=== PATIENT | female | born 1990 | race Caucasian/White ===

== ENCOUNTER 2020-12-31 13:32 | Emergency (ER) | payer OTHER, SELFPAY ==
[2020-12-31 13:35] VITALS: BP 131/69; PULSE 96; RESP 16; TEMP 36.4; O2SAT 99
--- NOTE | 2020-12-31 14:01 | ED.GENADULT ---
HPI - General Adult General Chief complaint: Upper Respiratory Infection Stated complaint: EARS/CONGESTION/PRESSURE IN FACE/COUGH Source: patient Mode of arrival: ambulatory Limitations: no limitations History of Present Illness HPI narrative: Patient is a 30-year-old, female presents to the [facility] via POV for evaluation of upper respiratory symptoms that began approximately 2 weeks ago. She is 34 weeks and is accompanied by her spouse. Additionally, she reports nasal congestion, head congestion, chest congestion, sinus congestion, right ear pain, wet cough, green nasal drainage, and fatigue. No relief with homeopathic medications or nasal lavages. Nuha and Tylenol provide minimal relief. Laying down worsens symptoms. Denies known exposure to sick contacts. Patient reports she is vaccinated against Covid. She also reports testing negative for strep throat and Covid shortly after onset of symptoms. Related Data Home Medications Medication Instructions Recorded Confirmed vit no.[id number] 1 tablet PO DAILY 02/21/19 02/21/19 [ Vitamin] escitalopram oxalate mg 12/31/20 Allergies Allergy/AdvReac Type Severity Reaction Status Date / Time chlorhexidine Allergy Intermediate Rash Verified 12/31/20 13:37 PSEUDOEPHEDRINE HCL Allergy Mild Palpitation Uncoded 02/21/19 14:51 s Review of Systems Review of Systems: Denies history of COPD, bronchitis, asthma, and pneumonia. Denies current/past tobacco use. Pertinent negatives: fever, sweats, chills, change in appetite, skin color changes, headache, dizziness, lymphadenopathy, sinus problems, ear drainage, muffled hearing, hearing loss, tinnitus, vertigo, chest pain, heart murmurs, heart palpitations, shortness of breath, wheezing, cyanosis, hemoptysis, hoarseness, orthopnea, pleuritic pain, nausea, vomiting, diarrhea, and myalgias. PMFSH Comments I have reviewed and agree with the patient's past medical, surgical, social, and family hx as documented by the RN. There is no relevant family history pertinent to the presenting complaint. Exam Narrative: GENERAL: Well-appearing, well-nourished, and in no acute distress. HEAD: Normocephalic, atraumatic. No sinus tenderness or facial swelling appreciated. EYES: PERRLA and EOMI. No evidence of erythema, swelling, or drainage. ENT: Right TM bulging with marked erythema. No evidence of fluid behind right TM. Bilateral external ears and ear canals normal. Left TM is normal. Nares clear, no rhinorrhea or epistaxis. Bilateral turbinates are moderately edematous and erythematous. Mucous membranes moist and pink. Uvula is midline without erythema and swelling. No evidence of petechial rash, cobblestoning, lesions, ulcers, erythema, swelling, exudates, peritonsillar abscess, tenting, or drooling. Breath odor is normal. Voice is nasally. NECK: Supple. No Lymphadenopathy or nuchal rigidity appreciated. CHEST: Bilateral lung macdonald are clear to auscultation. No respiratory distress. No evidence of pleuritic cp upon examination. Moderate wet cough appreciated on examination. ABDOMEN: gravid appearance HEART: Regular rate and rhythm. No murmur, gallop, or rub heard. EXTREMITIES: Normal range of motion. No edema. SKIN: Warm, dry, no rash. NEURO: No focal deficits. Alert and oriented x3. Course Vital Signs Vital signs: Vital Signs Temperature 97.6 F 12/31/20 13:35 Pulse Rate 96 12/31/20 13:35 Respiratory Rate 16 12/31/20 13:35 Blood Pressure 131/69 12/31/20 13:35 Pulse Oximetry 99 12/31/20 13:35 Temperature 97.6 F 12/31/20 13:35 Pulse Rate 96 12/31/20 13:35 Respiratory Rate 16 12/31/20 13:35 Blood Pressure 131/69 12/31/20 13:35 Pulse Oximetry 99 12/31/20 13:35 Reviewed Medical Decision Making Differential Diagnosis Differential Diagnosis: Allergic rhinitis, ABRS, acute viral sinusitis, strep pharyngitis, nasopharyngitis, bronchitis, pneumoni
== END 2020-12-31 14:20 | disposition home or self-care (01) ==
PROVIDERS: Emergency Provider Nurse Practitioner Family
DX: O99.891 Other specified diseases and conditions complicating pregnancy (principal); Z3A.34 34 weeks gestation of pregnancy; H65.191 Other acute nonsuppurative otitis media, right ear
CPT/HCPCS: 99213; G0463

== ENCOUNTER 2021-06-26 08:21 | Emergency (ER) | payer OTHER, SELFPAY ==
[2021-06-26 08:27] VITALS: BP 139/76; PULSE 76; RESP 16; TEMP 36.3; O2SAT 98
--- NOTE | 2021-06-26 08:56 | ED.URI ---
HPI - URI/Sore Throat General Chief Complaint: Upper Respiratory Infection Stated Complaint: Sinus Pain Time Seen by Provider: 06/26/21 08:56 Source: patient, RN notes reviewed and old records reviewed Mode of arrival: ambulatory Limitations: no limitations History of Present Illness HPI Narrative: 31-year-old female who presents to express care with complaints of sore throat,cough, congestion, sinus pressure, drainage which is green, sinus pressure mainly to left side of her face with headache pain frontal area since . Patient reports that she saw her doctor on Friday and was instructed to take Zyrtec and Flonase which she has been doing with no improvement in symptoms.She states that she had nausea,vomiting and diarrhea on Friday which lasted for 24 hours. She states that she has had some body aches and sweats denies any known fevers. Patient has had COVID vaccinations and Booster and also flu shot this year, did have Covid in March of 2021. MD elicited complaint: cough, rhinorrhea, nasal congestion and sinus pain Onset (ago): day(s) (5 days) Consistency: progressively worsening Description of mucous: green Exacerbating factors: swallowing and exertion Relieving factors: nothing Associated symptoms: myalgias, diaphoresis, headache, rhinorrhea, nasal congestion, sore throat and cough Treatments prior to arrival: other (flonase and zyrtec) Related Data Home Medications Medication Instructions Recorded Confirmed escitalopram oxalate 10 mg PO DAILY 12/31/20 06/26/21 Allergies Allergy/AdvReac Type Severity Reaction Status Date / Time chlorhexidine Allergy Intermediate Rash Verified 06/26/21 09:12 PSEUDOEPHEDRINE HCL AdvReac Mild Palpitation Uncoded 06/26/21 09:12 s Review of Systems Review of Systems: CONSTITUTIONAL: Denies any known fever, chills, positive for sweats. EYES: Denies visual changes, redness, or discharge. ENT: Positive for rhinorrhea, congestion, sore throat, bilateral otalgia, sinus pressure CARDIOVASCULAR: Denies chest pain, palpitations, or edema. RESPIRATORY: Positive for cough denies dyspnea. GASTROINTESTINAL: Denies abdominal pain, nausea, vomiting, or diarrhea at present, 24 hour episode of Nausea vomiting and diarrhea on Friday lasting 24 hours GENITOURINARY: Denies dysuria or hematuria. SKIN: Denies rash or itching. MUSCULOSKELETAL: Denies back pain, joint pain,some body aches NEUROLOGIC: Frontal headache,no numbness, or weakness. PSYCHIATRIC: Positive for history of anxiety or depression. All systems reviewed & are unremarkable except as noted in HPI and below PMFSH Past Medical History Medical History (Updated 06/26/21 @ 09:36 by Loly Hong NP) Anxiety and depression COVID-28 March 2021 Surgical History Surgical History (Updated 06/26/21 @ 09:36 by Loly Hong NP) History of adenoidectomy History of bunionectomy of both great toes Hx of cholecystectomy [place] teeth extracted Social History Social History (Updated 06/26/21 @ 09:21 by Loly Hong NP) Smoking status: Never smoker Alcohol intake: current Alcohol use details: rare social Substance use: never Living arrangements: with family Gender identity (if verbalized by the patient): Female Comments At time of signature, agree with nursing past medical, surgical, social and family history. There is no relevant family history pertinent to the presenting complaint Exam Narrative: GENERAL: Well-appearing, well-nourished, and in no acute distress. HEAD: Normocephalic, atraumatic. EYES: PERRLA and EOMI. ENT: Nares red and swollen especially to left nares, clear rhinorrhea noted, no epistaxis. Mucous membranes moist.TM's normal with dull light reflex, throat red with no tonsil swelling or any exudates or lesions,post nasal drainage. NECK: Supple, no lymphadenopathy CHEST: Clear to auscultation. No respiratory distress.SAO2 98% on room air HEART: Regular rate and rhythm. No murmur heard
== END 2021-06-26 09:30 | disposition home or self-care (01) ==
PROVIDERS: Emergency Provider Registered Nurse; PCP Nurse Practitioner Family
DX: J06.9 Acute upper respiratory infection, unspecified (principal); R05.9 Cough, unspecified; F41.9 Anxiety disorder, unspecified; F32.A Depression, unspecified; Z86.16 Personal history of COVID-19
CPT/HCPCS: 87081; 87804; 87880; 99213; G0463

== ENCOUNTER 2022-06-03 08:16 | Emergency (ER) | payer OTHER, SELFPAY ==
--- NOTE | 2022-06-03 08:19 | ED.BACK ---
HPI - Back Pain/Injury General Chief Complaint: Back Pain/Injury Stated Complaint: Lower back pain Time Seen by Provider: 06/03/22 08:20 Source: patient and RN notes reviewed History of Present Illness HPI Narrative: Patient is a 32-year-old female who presents to urgent care with complaints of low back pain since Friday. Patient states she has used [id number] pain relief cream, Tylenol, ice and heat. Patient states it does radiate to the right buttocks/right leg. Patient denies any known injury, fall, heavy lifting/pushing/pulling. Patient states she does lift her kids but nothing out of the ordinary. Denies any urinary symptoms. No other acute complaints. No acute distress noted. Patient aware of the plan of care. Some parts of this dictation were generated by voice recognition software and may contain typographical and/or grammatical inaccuracies. Related Data Allergies Allergy/AdvReac Type Severity Reaction Status Date / Time chlorhexidine Allergy Intermediate Rash Verified 06/03/22 08:33 PSEUDOEPHEDRINE HCL AdvReac Mild Palpitation Uncoded 06/03/22 08:33 s Review of Systems Review of Systems: CONSTITUTIONAL: Denies fever, chills, or sweats. EYES: Denies visual changes, redness, or discharge. ENT: Denies rhinorrhea, congestion, sore throat, or otalgia. CARDIOVASCULAR: Denies chest pain, palpitations, or edema. RESPIRATORY: Denies cough or dyspnea. GASTROINTESTINAL: Denies abdominal pain, nausea, vomiting, or diarrhea. GENITOURINARY: Denies dysuria or hematuria. SKIN: Denies rash or itching. MUSCULOSKELETAL: Reports of low back pain into the right leg NEUROLOGIC: Denies headache, numbness, or weakness. All other systems reviewed are negative, except as documented in HPI. [facility] Past Medical History Medical History (Updated 06/03/22 @ 08:57 by YOSELYN Merino) Anxiety and depression COVID-28 March 2021 Surgical History Surgical History (Updated 06/26/21 @ 09:36 by Loly Hong NP) History of adenoidectomy History of bunionectomy of both great toes Hx of cholecystectomy [place] teeth extracted Social History Social History (Updated 06/26/21 @ 09:21 by Loly L. 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 There is no relevant family history pertinent to the patient complaint. Exam Narrative: GENERAL: This is a well-nourished, well-developed patient, in no apparent distress. HEAD: normocephalic, atraumatic. EYES: PERRL. Sclera clear/white. Vision is grossly intact. EARS: External ears normal NOSE: External nose normal with no obvious nasal discharge, nares without redness, no rhinorrhea. THROAT: Mucous membranes moist NECK: Neck supple, GASTROINTESTINAL: Abdomen soft, non-tender, nondistended. SKIN: warm, intact with no suspicious lesions or rash, good texture and turgor. NEURO: awake, alert, and oriented to person, place and time. There were no obvious focal neurologic abnormalities. EXTREMITIES: No clubbing, cyanosis, or edema. BACK: Mild diffuse lumbar tenderness more so on the right, negative bilateral CVA tenderness Course Course Level of Care: Express Care Visit Vital Signs Vital signs: Vital Signs Temperature 97.9 F 06/03/22 08:30 Pulse Rate 83 06/03/22 08:30 Respiratory Rate 20 06/03/22 08:30 Blood Pressure 114/75 06/03/22 08:30 Pulse Oximetry 98 06/03/22 08:30 Oxygen Delivery Room Air 06/03/22 08:30 Temperature 97.9 F 06/03/22 08:30 Pulse Rate 83 06/03/22 08:30 Respiratory Rate 20 06/03/22 08:30 Blood Pressure 114/75 06/03/22 08:30 Pulse Oximetry 98 06/03/22 08:30 Oxygen Delivery Room Air 06/03/22 08:30
[2022-06-03 08:30] VITALS: BP 114/75; PULSE 83; RESP 20; TEMP 36.6; O2SAT 98
== END 2022-06-03 09:05 | disposition home or self-care (01) ==
PROVIDERS: Emergency Provider Nurse Practitioner Family; PCP Nurse Practitioner Family
DX: S39.012A Strain of muscle, fascia and tendon of lower back, initial encounter (principal); X58.XXXA Exposure to other specified factors, initial encounter
CPT/HCPCS: 81003; 99213; G0463

== ENCOUNTER 2022-06-10 14:15 | Emergency (ER) | payer OTHER, SELFPAY ==
--- NOTE | ~2022-06-10 | XR_ITS ---
EXAMINATION: XR lumbar spine min 4V DATE: 06/10/2022 14:46 INDICATION: Low back pain TECHNIQUE: Anteroposterior, lateral, and bilateral oblique views of the lumbar spine, and cone-down l ateral view of the lumbosacral junction were obtained. COMPARISON: None. FINDINGS: The vertebral body heights and alignment are normal. The lumbar intervertebral disc space h eights are maintained. There is mild loss of disc space height in the lower thoracic spine. There is no fracture. IMPRESSION: 1. No acute osseous abnormality. Reviewed, dictated and finalized at location B.
--- NOTE | 2022-06-10 14:19 | ED.BACK ---
HPI - Back Pain/Injury General Chief Complaint: Back Pain/Injury Stated Complaint: Back Pain Time Seen by Provider: 06/10/22 14:19 Source: patient and RN notes reviewed History of Present Illness HPI Narrative: Patient is a 32-year-old female who presents to urgent care with complaints of back pain. Patient was seen for sciatic on 06/03 and given Flexeril, ibuprofen and steroids. At that time patient denied any injury to her back. Urinalysis at that time was negative for UTI. Patient states that she took the steroids and ibuprofen however she has not been taking the Flexeril due to . Patient has been doing ice and heat without any relief. Patient does have an appointment with her doctor tomorrow to have an x-ray however she states that she has transportation issues and needs the x-ray done today. Patient states the steroid did not do much for her low back pain. Denies any new injury or changes in pain. No acute distress noted. Patient aware of the plan of care. Some parts of this dictation were generated by voice recognition software and may contain typographical and/or grammatical inaccuracies. Related Data Home Medications Medication Instructions Recorded Confirmed escitalopram oxalate 10 mg tablet 10 mg PO DIRECTED 06/10/22 06/10/22 Allergies Allergy/AdvReac Type Severity Reaction Status Date / Time chlorhexidine Allergy Intermediate Rash Verified 06/03/22 08:33 Review of Systems Review of Systems: CONSTITUTIONAL: Denies fever, chills, or sweats. EYES: Denies visual changes, redness, or discharge. ENT: Denies rhinorrhea, congestion, sore throat, or otalgia. CARDIOVASCULAR: Denies chest pain, palpitations, or edema. RESPIRATORY: Denies cough or dyspnea. GASTROINTESTINAL: Denies abdominal pain, nausea, vomiting, or diarrhea. GENITOURINARY: Denies dysuria or hematuria. SKIN: Denies rash or itching. MUSCULOSKELETAL: Reports persistent low back pain NEUROLOGIC: Denies headache, numbness, or weakness. All other systems reviewed are negative, except as documented in HPI. [facility] Past Medical History Medical History (Updated 06/10/22 @ 14:59 by YOSELYN Merino) Anxiety and depression COVID-28 March 2021 Surgical History Surgical History (Updated 06/26/21 @ 09:36 by Loly Hong NP) History of adenoidectomy History of bunionectomy of both great toes Hx of cholecystectomy [place] teeth extracted Social History Social History (Updated 06/26/21 @ 09:21 by Loly Hong NP) Smoking status: Never smoker Alcohol intake: current Alcohol use details: rare social Substance use: never Living arrangements: with family Gender identity (if verbalized by the patient): Female Comments At the time of my signature, I reviewed and agree with the nursing past medical, surgical, social, and family history. There is no relevant family history pertinent to the patient complaint. Exam Narrative: GENERAL: This is a well-nourished, well-developed patient, in no apparent distress. HEAD: normocephalic, atraumatic. EYES: PERRL. Sclera clear/white. Vision is grossly intact. EARS: External ears normal NOSE: External nose normal with no obvious nasal discharge, nares without redness, no rhinorrhea. THROAT: Mucous membranes moist NECK: Neck supple, SKIN: warm, intact with no suspicious lesions or rash, good texture and turgor. NEURO: awake, alert, and oriented to person, place and time. There were no obvious focal neurologic abnormalities. EXTREMITIES: No clubbing, cyanosis, or edema. No joint tenderness, effusion, or edema noted. No calf tenderness. Negative Homans sign bilaterally. BACK: Mild right piriformis muscle tenderness with positive right SLE Course Course Level of Care: Express Care Visit Vital Signs Vital signs: Vital Signs Temperature 98.7 F 06/10/22 14:21 Pulse Rate 80 06/10/22 14:21 Respiratory Rate 18 06/10/22 14:21 Blood Pressure 125/81 04
[2022-06-10 14:21] VITALS: BP 125/81; PULSE 80; RESP 18; TEMP 37.1; O2SAT 98
[2022-06-10 14:29] VITALS: BP 125/81; PULSE 80; RESP 18; TEMP 37.1; O2SAT 98
== END 2022-06-10 15:10 | disposition home or self-care (01) ==
PROVIDERS: Emergency Provider Nurse Practitioner Family; PCP Nurse Practitioner Family
DX: S39.012A Strain of muscle, fascia and tendon of lower back, initial encounter (principal); X58.XXXA Exposure to other specified factors, initial encounter; F41.9 Anxiety disorder, unspecified; F32.A Depression, unspecified; Z86.16 Personal history of COVID-19
CPT/HCPCS: 72110; 99213; G0463

== ENCOUNTER 2023-11-07 03:35 | Emergency (ER) | payer OTHER, SELFPAY ==
[2023-11-07 03:44] VITALS: BP 135/82; PULSE 80; RESP 18; TEMP 36.6; O2SAT 100
[2023-11-07 03:58] LABS: Bacteria Urine None Seen /hpf; Non Pathogenic Casts 0-2; RBC Urine >100 /hpf (0-2); Squamous Epithelial Cell Urine None Seen /hpf (Few); WBC Urine >100 /hpf (0-3)
[2023-11-07 04:07] LABS: Add Urine Microscopic? YES; Appearance Urine Turbid (Clear); Bilirubin Urine 1+ (Negative); Blood Urine 3+ (Negative); Color Urine Brown (Yellow); Glucose Urine UA Negative (Negative); Ketones Urine Negative (Negative); Leukocyte Esterase Ur 3+ LEU/UL (Negative); Nitrate Urine Negative (Negative); Protein Urine 3+ mg/dL (Negative); Specific Grav Ur 1.023 (1.001-1.035)
[2023-11-07] MEDS: CEPHALEXIN 500 MG CAPSULE PO (04:30)
[2023-11-07] MEDS: PHENAZOPYRIDINE HCL 100 MG TABLET 200 MG PO (04:30)
--- NOTE | 2023-11-07 04:31 | ED.FEMALEGU ---
HPI - Female Genitourinary General Chief complaint: Urogenital-Female Stated complaint: uti Time Seen by Provider: 11/07/23 03:40 History of Present Illness HPI Narrative: Patient is a 33-year-old female who presents to the emergency department this evening complaining of dysuria. Patient states that she started to have urinary tract infection symptoms approximately 1 week ago and started taking azo [id number] as she thought that that might clear her UTI. She continued to have dysuria and called her primary care physician who prescribed her Macrobid. Patient started taking Macrobid 3 days ago and has had 3 full days worth of Macrobid but feel as though her symptoms are only worsening. She is only complaining of dysuria, denies any flank pain, abdominal pain, nausea, vomiting, fevers or chills. No additional symptoms or concerns at this time. Related Data Home Medications Medication Instructions Recorded Confirmed escitalopram oxalate 10 mg tablet 10 mg PO DIRECTED 06/10/22 06/10/22 Allergies Allergy/AdvReac Type Severity Reaction Status Date / Time chlorhexidine Allergy Intermediate Rash Verified 06/03/22 08:33 Review of Systems Review of Systems: All systems are reviewed and are negative unless stated otherwise in the HPI. [facility] Past Medical History Medical History Anxiety and depression COVID-28 March 2021 Surgical History Surgical History History of adenoidectomy History of bunionectomy of both great toes Hx of cholecystectomy [place] teeth extracted Social History Social History Smoking status: Never smoker Alcohol intake: current Alcohol use details: rare social Substance use: never Living arrangements: with family Gender identity (if verbalized by the patient): Female Exam Narrative: General: Alert, awake, afebrile, in no acute distress. HEENT: PERRL, no rhinorrhea, no post nasal drip, oropharynx clear. Cardiovascular: Regular rate and rhythm, no murmurs, rubs or gallops, no peripheral edema. Respiratory: Clear to auscultation bilaterally, no tachypnea, no wheezing, no rhonchi, no rubs, no respiratory distress. Abdomen: Soft, nontender, nondistended, no rebound, no guarding, no peritoneal signs. Musculoskeletal: No joint swelling or deformity, normal muscle tone. Skin: No rashes or petechia, no signs of infection. Neurological: Alert and oriented to person, place, and time. Follows all commands. No focal deficits, speech is clear and fluent. Course Vital Signs Vital signs: Vital Signs Temperature 97.9 F 11/07/23 03:44 Pulse Rate 80 11/07/23 03:44 Respiratory Rate 18 11/07/23 03:44 Blood Pressure 135/82 11/07/23 03:44 Pulse Oximetry 100 11/07/23 03:44 Oxygen Delivery Room Air 11/07/23 03:44 Temperature 97.9 F 11/07/23 03:44 Pulse Rate 80 11/07/23 03:44 Respiratory Rate 18 11/07/23 03:44 Blood Pressure 135/82 11/07/23 03:44 Pulse Oximetry 100 11/07/23 03:44 Oxygen Delivery Room Air 11/07/23 03:44 MDM - Female Genitourinary MDM Narrative Medical decision making narrative: The patient was evaluated by myself in the emergency department. History is obtained from patient who is an independent historian and physical exam was performed. External medical records were reviewed at this time. Urinalysis did reveal urinary tract infection. At this time patient was informed that she will be switched refer antibiotic, cephalexin and she was administered 500 mg of oral cephalexin and 200 mg oral peridium at this time. She was informed that she will be provided with 2 scripts 1 for cephalexin and 1 for begin to use as prescribed and that if her symptoms do not improve within the next 3 days that she will need to return to the ED or call to find out her culture res
== END 2023-11-07 04:53 | disposition home or self-care (01) ==
PROVIDERS: Emergency Provider Emergency Medicine; PCP Nurse Practitioner Family
DX: N39.0 Urinary tract infection, site not specified (principal); F41.9 Anxiety disorder, unspecified; F32.A Depression, unspecified; Z86.16 Personal history of COVID-19; Z90.49 Acquired absence of other specified parts of digestive tract; Z79.899 Other long term (current) drug therapy
CPT/HCPCS: 81001; 87086; 99283; A9270

== ENCOUNTER 2024-07-11 16:36 | Emergency (ER) | payer OTHER, SELFPAY ==
--- NOTE | ~2024-07-11 | CT_ITS ---
EXAMINATION: CT abdomen pelvis wo con DATE: 07/11/2024 17:41 INDICATION: R flank pain, uti, r/o stone TECHNIQUE: Computed tomography (CT) of the abdomen and pelvis was performed without intravenous contr ast. Automated exposure control and iterative reconstruction technique were employed. The dose-length product was 215.97 mGy-cm. COMPARISON: None. FINDINGS: Lower thorax: Unremarkable Liver: Normal. Biliary/Gallbladder: Gallbladder is absent. No bile duct dilation. Pancreas: No mass or duct dilation. Spleen: Normal. Adrenals:No mass. Kidneys: No suspicious mass, obstructing stone, or hydronephrosis. GI tract: No small or large bowel dilation. Appendix not confidently visualized. Mesentery/Peritoneum: No ascites, mass, or free air. Retroperitoneum: No mass. Pelvis: Pelvic organs are within normal limits. Soft Tissues: Small uncomplicated fat-containing umbilical hernia. Bones: No acute osseous finding. IMPRESSION: No acute abdominopelvic process detected. Reviewed, dictated and finalized at location K.
--- OUTSIDE RECORDS SUMMARY | 2024-07-11 16:38 | XMS_ITS | Encounter Summary ---
Author Organization [facility] Address [address] [place] [id number] Care Team Providers Care Instrument Setter Name Role Phone Nata Mario NP Primary Care Provider No, Physician Unavailable Encounter Details Date Type Department Care Team (Latest Contact Info) Description 07/11/2024 12:02 AM CDT Hospital Encounter [facility] [address] [place], [place] [id number] Midline low back pain without sciatica, unspecified chronicity Social History Tobacco Use Types Packs/Day Years Used Date Smoking Tobacco: Never Smokeless Tobacco: Never Alcohol Use Standard Drinks/Week Comments No 0 (1 standard drink = 0.6 oz pur e alcohol) Comments No Sex and Gender Information Value Date Recorded Sex Assigned at Not on file Legal Sex 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 Gender Identity Not on file Sexual Orientation Not on file documented as of this encounter Plan of Treatment Pending Results Name Type Priority Associated Diagnoses Date /Time Urine culture Urine, bladder Microbiology Routine Midline low back pain without sciatica, unspecified chronicity 07/10/2024 5:55 PM CDT Scheduled Orders Name Type Priority Associated Diagnoses Orde r Schedule Urine culture Urine, bladder Microbiology Routine Midline low back pain without sciatica, unspecified chronicity Once for 1 Occurrences starting 07/11/2024 until 07/11/2024 documented as of this encounter Visit Diagnoses Diagnosis Midline low back pain without sciatica, unspecified chronicity documented in this encounter Care Teams Instrument Setter Relationship Specialty Start Date End Date Nata Mario NP [address] [place] [address] PCP - General Nurse Practitioner 06/17/22 No, Physician 06/17/22 documented as of this encounter
--- OUTSIDE RECORDS SUMMARY | 2024-07-11 16:38 | XMS_ITS | Encounter Summary ---
Author Organization [facility] Healthcare Address [address] [place] [address] Care Team Providers Care Shop Clerk Name Role Phone Nata Mario NP Primary Care Provider No, Physician Unavailable Reason for Visit * Reason Comments Back Pain Mid back pain, shoot ing, sharp. Onset: 4 days Patient went to the chiropractor and it didn't help. Encounter Details Date Type Department Care Team (Late st Contact Info) Description 07/10/2024 5:30 PM CDT Office Visit [facility] at [address] [place] [address] Mariama Pryor, SRUTHI [address] [facility] [address] [place] [address] Midline low back pain without sciatica, unspecified chronicity (Primary Dx); Glucose found in urine on examination Social History Tobacco Use Types Packs/Day Years Used Date Smoking Tobacco: Never Smokeless Tobacco: Never Tobacco Cessation:Counseling Given: Yes Alcohol Use Standard Drinks/Week Comments No 0 (1 standard drink = 0.6 oz pur e alcohol) Comments No Sex and Gender Information Value Date Recorded Sex Assigned at Not on file 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 Gender Identity Not on file Sexual Orientation Not on file documented as of this encounter Last Filed Vital Signs Vital Sign Reading Time Taken Comments Blood Pressure 112/80 07/10/2024 5:46 PM CDT Pulse 84 07/10/2024 5:46 PM CDT Temperature 36.7 C (98 F) 07/10/2024 5:46 PM CDT Respiratory Rate 16 07/10/2024 5:46 PM CDT Oxygen Saturation 98% 07/10/2024 5:46 PM CDT Inhaled Oxygen Concentration - - Weight 81.6 kg (180 lb) 07/10/2024 5:46 PM CDT Height 157.5 cm (5' 2 ) 07/10/2024 5:46 PM CDT Body Mass Index 32.92 07/10/2024 5:46 PM CDT documented in this encounter Patient Instructions * Patient Instructions* Mariama Pryor NP - 07/10/2024 5:30 PM CDT Treatment of urinary symptoms: Take your prescribed antibiotic until it is gone. It is important to read the information provided by your pharmacist about the medications you are being prescribed. If prescribed, you may use Pyridium as needed for burning upon urination- do not use for more than 3 days as this can mask the symptoms of a worsening infection. Pyridium will turn your urine orange. To prevent UTI in the future: Increase your water intake. Urine should be clear or nearly clear. Attempt to empty your bladder every 2-3 hours and do not hold urine for long periods of time. Avoid citrus juices, caffeine, alcohol, and intercourse (bladder irritants) until your symptoms resolve and treatment is complete. Always wipe from front to back. Void before and after intercourse. Avoid tight-fitting jeans, nylon or thong underwear as they can trap moisture and help bacteria grow. Cotton underwear and loose-fitting clothes should be worn. Call you PRIMARY CARE PROVIDER should your symptoms fail to improve or worsen. Go to the ER if you experience any severe pains, fever >101 that does not respond to Motrin or Tylenol, persistent vomiting, or any other worsening symptoms. documented in this encounter Ordered Prescriptions Prescription Sig Dispense Quantity Refills Last Filled Start Date End Date phenazopyridine (Pyridium) 200 mg tablet Take 1 tablet (200 mg total) by mouth 3 (three) times a day as needed for bladder spasms for up to 2 days 6 tablet 07/10/2024 cephalexin (KEFLEX) 500 mg capsuleIndications :Urinary Tract/Genitourinar y Infection Take 2 capsules (1,000 mg total) by mouth 3 (three) times a day for 7 days 42 capsule 07/10/2024 documented in this encounter Plan of Treatment Pending Results Name Type Priority Associated Diagnoses Date /Time Urine culture Urine, bladder Microbiology Routine Midline low back pain without sciatica, unspecified chronicity 07/10/2024 5:55 PM CDT Scheduled Orders Name Type Priority Associated Diagnoses Orde r Schedule Urine culture Urine, bladder Microbiology Routine Midline low back pain without sciatica, unspecified chronicity Expected: 07/10/2024, Expires: 07/10/2025 documented as of this encounter Procedures Procedure Name Priority Date/Time Associated Diagnosis Comments POCT GLUCOSE Routine 07/10/2024 6:05 PM CDT Midline low back pain without sciatica, unspecified chronicity Glucose found in urine on examination POCT URINALYSIS DIPSTICK Routine 07/10/2024 5:53 PM CDT Midline low back pain without sciatica, unspecified chronicity documented in this encounter Results * POCT glucose (07/10/2024 6:05 PM CDT) Glucose Blood, POC 93 Normal Fasting 70 - 100, Random <200 mg/dL Blood 07/10/2024 6:05 PM CDT Mariama Pryor NP POINT OF CARE TEST [place] Final Result * (ABNORMAL) POCT urinalysis dipstick (07/10/2024 5:53 PM CDT) Color, Urine, POC [place] Clarity, ur, POC Cloudy(A) Clear Glucose, ur, POC 100.(A) Negative Bilirubin, ur, POC Small(A) Negative Ketones, ur, POC Trace(A) Negative Specific [place], POC 1.015 1.003 - 1.030 Blood, ur, POC Small(A) Negative pH, ur, POC 5.0 5.0 - 8.0 Protein, ur, POC 100.(A) Negative Urobilinogen, urine, POC 4.0(A) 0.2 - 1.0 mg/dL Nitrite, ur, POC Positive(A ) Negative Leukocytes, ur, POC Large(A) Negative Lot Number [id number] Urine 07/10/2024 5:53 PM CDT Mariama Pryor NP POINT OF CARE TEST [place] Final Result documented in this encounter Visit Diagnoses Diagnosis Midline low back pain without sciatica, unspecified chronicity- Primary Glucose found in urine on examination Glycosuria documented in this encounter Discontinued Medications Medication Sig Discontinue Reason Start Date End Da te albuterol HFA (PROVENTIL HFA,VENTOLIN HFA,PROAIR HFA) 90 mcg/actuation inhaler Inhale 2 puffs every 6 (six) hours as needed for wheezing or shortness of breath Therapy completed 10/08/2022 07/10/2024 ofloxacin (OCUFLOX) 0.3 % ophthalmic solutionIndications:Angeline camara corneal abrasion, initial encounter Administer 2 drops into the left eye every 4 (four) hours Therapy completed 12/31/2022 07/10/2024 raNITIdine (ZANTAC) 150 mg tablet take 1 tablet by oral route every day at bedtime Therapy completed 05/23/2016 07/10/2024 SUMAtriptan (IMITREX) 50 mg tablet take 2 tablet by oral route once with fluids as early as possible after the onset of a migraine attack;may repeat after 2 hours if headache returns, not to exceed 200mgin 24hrs Therapy completed 10/19/2013 07/10/2024 escitalopram (LEXAPRO) 10 mg tablet Alternate therapy 06/11/2022 07/10/2024 documented as of this encounter Historical Medications * This list may reflect changes made after this encounter. escitalopram (LEXAPRO) 20 mg tablet Take 1 tablet (20 mg total) by mouth daily 04/27/2024 Wegovy 0.5 mg/0.5 mL auto-injector Inject 0.5 mg under the skin every 7 days added in this encounter Care Teams Shop Clerk Relationship Specialty Start Date End Date Nata Mario NP [address] [place] [address] PCP - General Nurse Practitioner 06/17/22 No, Physician 06/17/22 documented as of this encounter
--- OUTSIDE RECORDS SUMMARY | 2024-07-11 16:38 | XMS_ITS | Encounter Summary ---
Author Organization [facility] Healthcare Address [address] [place] [address] Care Team Providers Care Salesforce Business Analyst Name Role Phone Nata Mario NP Primary Care Provider [phone] No, Physician Unavailable Encounter Details Date Type Department Care Team (Late st Contact Info) Description 07/11/[address] 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 Please advise. documented in this encounter Plan of Treatment Not on file documented as of this encounter Visit Diagnoses Not on filedocumented in this encounter Care Teams Salesforce Business Analyst Relationship Specialty Start Date End Date Mario, Nata Alejo NP [address] [place] [address] PCP - General Nurse Practitioner 06/17/22 No, Physician 06/17/22 documented as of this encounter
--- OUTSIDE RECORDS SUMMARY | 2024-07-11 16:38 | XMS_ITS | Referral Summary ---
Author Organization [address] Address [address] [place] [phone] Care Team Providers Care Pull Over Machine Operator Name Role Phone Nata Mario DECK OFFICER Primary Care Provider No, Physician Unavailable Encounters Date Type Department Care Team Description 07/11/2024 Telephone [facility] at [address] [place] [phone] Opal Avilez NP 07/11/2024 12:02 AM CDT Hospital Encounter [address] [address] Midline low back pain without sciatica, unspecified chronicity 07/10/2024 5:30 PM CDT Office Visit [facility] at [address] [place] [address] Mariama Pryor NP Midline low back pain without sciatica, unspecified chronicity (Primary Dx); Glucose found in urine on examination from Last 3 Months Allergies Active Allergy Reactions Criticality Noted Date Comments Chlorhexidine Rash Medium 02/26/2017 Pseudoephedrine Palpitations High Reaction: tachycardia, Medications Wegovy 0.5 mg/0.5 mL auto-injector Inject 0.5 mg under the skin every 7 days Active escitalopram (LEXAPRO) 20 mg tablet Take 1 tablet (20 mg total) by mouth daily 5 Active cephalexin (KEFLEX) 500 mg capsuleIndicat ions:Urinary Tract/Genitour inary Infection Take 2 capsules (1,000 mg total) by mouth 3 (three) times a day for 7 days 42 capsule 5 07/18/19 25 Active phenazopyridin e (Pyridium) 200 mg tablet Take 1 tablet (200 mg total) by mouth 3 (three) times a day as needed for bladder spasms for up to 2 days 6 tablet 5 07/13/19 25 Active SUMAtriptan (IMITREX) 50 mg tablet take 2 tablet by oral route once with fluids as early as possible after the onset of a migraine attack;may repeat after 2 hours if headache returns, not to exceed 200mgin 24hrs 9 0 4 07/11/19 25 Discontinu ed(Therapy completed) raNITIdine (ZANTAC) 150 mg tablet take 1 tablet by oral route every day at bedtime 30 3 7 07/11/19 25 Discontinu ed(Therapy completed) escitalopram (LEXAPRO) 10 mg tablet 3 07/11/19 25 Discontinu ed(Alterna te therapy) albuterol HFA (PROVENTIL HFA,VENTOLIN HFA,PROAIR HFA) 90 mcg/actuation inhaler Inhale 2 puffs every 6 (six) hours as needed for wheezing or shortness of breath 1 each 3 07/11/19 25 Discontinu ed(Therapy completed) ofloxacin (OCUFLOX) 0.3 % ophthalmic solutionIndica tions:Left corneal abrasion, initial encounter Administer 2 drops into the left eye every 4 (four) hours 5 mL 3 07/11/19 25 Discontinu ed(Therapy completed) Hospital, Clinic, or Other Facility Administered Medication Ordered Dose Route Frequency Start Date End Date Status cefTRIAXone (ROCEPHIN) 250 mg/mL intramuscular injection 500 mgIndications:Upper Respiratory/HEENT Infection 500 mg IM Every 24 hours scheduled 06/20/2022 Active Active Problems Problem Noted Date Diagnosed Date Amniotic fluid leaking 10/08/2022 Anxiety 10/08/2022 History of shoulder dystocia in prior , currently 10/08/2022 Obesity in , antepartum 10/08/2022 Nausea and vomiting during 02/25/2022 contractions 02/02/2022 Urinary tract infection in m other during third trimester of 02/02/2022 (spontaneous vaginal delivery) 10/13/2019 Contact allergic reaction 02/26/2017 Overview (10/08/2022): chloraprep - severe Immunizations Immunization Administration Dates Next Due Influenza, Quadrivalent, Spl it, Preservative Free, Intradermal 12/11/2015 Influenza, Quadrivalent, Spl it, Preservative Free, Intramuscular 12/14/2019 Social History Tobacco Use Types Packs/Day Years Used Date Smoking Tobacco: Never Smokeless Tobacco: Never Tobacco Cessation:Counseling Given: Yes Alcohol Use Standard Drinks/Week Comments No 0 (1 standard drink = 0.6 oz pur e alcohol) Comments No Sex and Gender Information Value Date Recorded Sex Assigned at Not on file 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 Gender Identity Not on file Sexual Orientation Not on file Last Filed Vital Signs Vital Sign Reading [...] Mass Index 32.92 07/10/2024 5:46 PM CDT Plan of Treatment Not on file Procedures Procedure Name Priority Date/Time Associated Diagnosis Comments POCT GLUCOSE Routine 07/10/2024 6:05 PM CDT Midline low back pain without sciatica, unspecified chronicity Glucose found in urine on examination POCT URINALYSIS DIPSTICK Routine 07/10/2024 5:53 PM CDT Midline low back pain without sciatica, unspecified chronicity from Last 3 Months Results * POCT glucose (07/10/2024 6:05 PM CDT) Glucose Blood, POC 93 Normal Fasting 70 - 100, Random <200 mg/dL Blood 07/10/2024 6:05 PM CDT Mariama Pryor NP POINT OF CARE TEST [place] Final Result * (ABNORMAL) POCT urinalysis dipstick (07/10/2024 5:53 PM CDT) Color, Urine, POC [place] Clarity, ur, POC Cloudy(A) Clear Glucose, ur, POC 100.(A) Negative Bilirubin, ur, POC Small(A) Negative Ketones, ur, POC Trace(A) Negative Specific [place], POC 1.015 1.003 - 1.030 Blood, ur, POC Small(A) Negative pH, ur, POC 5.0 5.0 - 8.0 Protein, ur, POC 100.(A) Negative Urobilinogen, urine, POC 4.0(A) 0.2 - 1.0 mg/dL Nitrite, ur, POC Positive(A ) Negative Leukocytes, ur, POC Large(A) Negative Lot Number [id number] Urine 07/10/2024 5:53 PM CDT Mariama Pryor NP POINT OF CARE TEST [place] Final Result from Last 3 Months Insurance [facility] ALLEGIANCE CIG[employer] [place] [address] [place] [phone] CIGNA ALLEGIANCE C[employer] Care Teams Pull Over Machine Operator Relationship Specialty Start Date End Date Nata Mario NP [address] [place] [address] PCP - General Nurse Practitioner 06/17/22 No, Physician 06/17/22
--- OUTSIDE RECORDS SUMMARY | 2024-07-11 16:39 | XMS_ITS | Data Portability ---
Author Organization JOSUÉ GUZMANStephanie Malcolm Address [address] [facility] [place] [place] [address] Care Team Providers Care Gauger Delivery Name Role Phone NATA MARTINEZ Primary Care Provider [phone] AMANDA MARTINS Fountain Dispenser [phone] Assessment No assessment recorded. Plan of Treatment Reminders Order Date Submit Date Provider Last Modified By Organization Details Last Modified Time Details Appointments ANY 15 2024 10:15A M Nata Martinez, AMBER, [employer] Not available Not available Not available Lab HbA1 c (hem oglo bin A1c) , reuben reeves 2023 024 [facility], [address] [place] [address], [address], 11/25/2023 10:37:26 CMP, seru m or plas ma 2023 024 [facility], [address] [place] [address], [place], [address], 11/25/2023 08:27:12 lipi d madiha silva seru m 2023 024 [facility], [address] [place] [address] 2, [place], [address], 11/25/2023 08:27:12 TSH, ultr a-se nsit hannah seru m 2023 024 [facility], [address] [place] [address], [place], [address], 11/25/2023 10:37:25 CBC 2023 024 [facility], [address] [place] [address] 2, [place], [address], 11/25/2023 08:27:13 adam min D, 25-h ydro xy, tota l, seru m 2023 024 [facility], [address] [place] [address] 2, [place], [address], 11/25/2023 10:37:27 HbA1 c (hem oglo bin A1c) , bloo d 2022 023 [facility], [address] [place] [address] 2, [place], [address], 10/30/2022 06:13:43 CMP, seru m or plas ma 2022 023 [facility], [address] [place] [address] 2, [place], [address], 10/30/2022 03:08:48 [address] alex martini st refe rral 2024 025 [facility] [address], [place] [address], [place], [address], 06/24/2024 14:32:44 Procedures None shae rded . Surgeries None shae rded . Imaging None shae rded . Medication Orders Wego vy 0.25 mg/0 .5 mL subc utan eous pen inje ctor 2024 025 [id number], [address], [place], [place], [id number], 04/27/2024 11:28:13 phen term ine 15 mg caps ule 2024 025 [id number], [address], [place], [place], [id number], 05/11/2024 14:02:39 esci talo pram 20 mg tabl et 2024 025 [id number], [address], [place], [place], [id number], 04/27/2024 11:28:13 phen term ine 15 mg caps ule 2023 024 [facility]111, [address], [place], [place], [id number], 05/11/2024 14:01:54 esci talo pram 20 mg tabl et 2023 024 [facility], [address], [place], [place], [id number], 11/24/2023 11:53:38 Wego vy 1.7 mg/0 .75 mL subc utan eous pen inje ctor 2023 024 [facility], [address], [place], [place], [id number], 05/05/2023 09:17:18 Wego vy 0.5 mg/0 .5 mL subc utan eous pen inje ctor 2022 024 [id number], [address], [place], [place], [id number], 05/05/2023 09:17:14 Patient TargetsNo targets recorded. Patient Instructions Encounter Date Encounter Id Patient Instructions Last Modified By Organization Details Last Modified Time 10/29/2022 [id number] learning about high blood sugar Not available 10/29/2022 15:59:34 When You Want to Lose Weight: Care Instructions Not available 10/29/2022 15:59:33 Increase activit y level to get exercise most days of the week. Work on eating more fresh fruit, veggies and lean protein and less packaged foods. Not available 10/29/2022 16:06:49 dwp labs needed, plan pending results Not available 10/29/2022 22:33:44 12/02/2022 [id number] sore throat: car e instructions Not available 12/02/2022 16:03:47 A healthy lifestyle: care instructions Not available 12/02/2022 16:03:47 Increase activit y level to get exercise most days of the week. Work on eating more fresh fruit, veggies and lean protein and less packaged foods. 75 ounces of water, less than 75 grams of carbs a day and at least 75 grams of protein a day Not available 12/02/2022 16:05:00 f/u 3 months DWP barriers to care: none Not available 12/02/2022 16:05:06 03/25/2023 [id number] allergies: care instructions Not available 03/25/2023 17:13:55 managing your allergies: care instructions Not available 03/25/2023 17:13:55 learning about high blood sugar Not available 03/25/2023 17:13:55 A healthy lifestyle: care instructions Not available 03/25/2023 17:13:55 Increase activit y level to get exercise most days of the week. Work on eating more fresh fruit, veggies and lean protein and less packaged foods. 75 ounces of water, less than 75 grams of carbs a day and at least 75 grams of protein a day Not available 03/25/2023 17:03:44 f/u 6 months DWP barriers to care: none Not available 03/25/2023 17:24:48 11/24/2023 [id number] influenza (flu) vaccine: care instructions Not available 11/24/2023 11:53:26 Increase intake of fresh fruits, and vegetables. Avoid packaged foods and fast foods. Follow a low salt diet, drink at least 8-10 8oz glasses of water a day, exercise most days of the week. Take all medications as prescribed. Keep appointments with PCP and all specialists. Not available 11/24/2023 11:54:12 f/u 3 months DWP barriers to care: none Not available 11/24/2023 11:54:21 04/27/2024 [id number] A healthy lifestyle: care instructions [facility] Not available 04/27/2024 11:27:51 Increase intake of fresh fruits, and vegetables. Avoid packaged foods and fast foods. Follow a low salt diet, drink at least 8-10 8oz glasses of water a day, exercise most days of the week. Take all medications as prescribed. Keep appointments with PCP and all specialists. 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 METAB OLIC PANEL (14) glucose 109 mg/dL 70-99 above high normal Not Available [facility] [address] [place], [address], 10/30/2022 03:08:48 10/30/19 23 10/29/2022 COMP. METAB OLIC PANEL (14) BUN 13 mg/dL 6-20 Not Available [facility] [address] [place], [address], 10/30/2022 03:08:48 10/30/19 23 10/29/2022 COMP. METAB OLIC PANEL (14) creatinine 1.02 mg/dL 0.76-1 .27 Not Available [facility] [address] [place], [address], 10/30/2022 03:08:48 10/30/19 23 10/29/2022 COMP. METAB OLIC PANEL (14) eGFR 76 >=60 Units for eGFR value s are mL/mi n/1.7 3 The eGFR Calcu latio n has not been valid ated for patie nts under the age of 18. If test resul ts are displ ayed for a patie nt under the age of 18, disre ezequiel that value . Not Available [facility] [address] [place] [address], [address], 10/30/2022 03:08:48 10/30/19 23 10/29/2022 COMP. METAB OLIC PANEL (14) BUN/creatini ne ratio 12 - Not Available [facility] [address] [place] [address], [address], 10/30/2022 03:08:48 10/30/19 23 10/29/2022 COMP. METAB OLIC PANEL (14) sodium 142 mmol/ L 134-14 4 Not Available [facility] [address] [place] [address], [address], 10/30/2022 03:08:48 10/30/19 23 10/29/2022 COMP. METAB OLIC PANEL (14) potassium 3.9 mmol/ L 3.5-5. 2 Not Available [facility] [address] [place] [address], [address], 10/30/2022 03:08:48 10/30/19 23 10/29/2022 COMP. METAB OLIC PANEL (14) chloride 105 mmol/ L 96-106 Not Available [facility] [address] [place] [address], [address], 10/30/2022 03:08:48 10/30/19 23 10/29/2022 COMP. METAB OLIC PANEL (14) carbon dioxide, total 27 mmol/ L 20-29 Not Available [facility] [address] [place] [address], [address], 10/30/2022 03:08:48 10/30/19 10/29/2022 COMP. METAB OLIC PANEL (14) calcium 9.6 mg/dL 8.7-10 .2 Not Available [facility] [address] [place] [address], [address], 10/30/2022 03:08:48 10/30/19 23 10/29/2022 COMP. METAB OLIC PANEL (14) protein, total 7.6 g/dL 6.0-8. 5 Not Available [facility] [address] [place] [address], [address], 10/30/2022 03:08:48 10/30/19 23 10/29/2022 COMP. METAB OLIC PANEL (14) albumin 4.5 g/dL 4.0-5. 0 Not Available [facility] [address] [place] [address], [address], 10/30/2022 03:08:48 10/30/19 23 10/29/2022 COMP. METAB OLIC PANEL (14) globulin, total 3.1 g/dL 1.5-4. 5 Not Available [facility] [address] [place] [address], [address], 10/30/2022 03:08:48 10/30/19 23 10/29/2022 COMP. METAB OLIC PANEL (14) A/G ratio 1.0 1.2-2. 2 below low normal Not Available [facility] [address] [place] [address], [address], 10/30/2022 03:08:48 10/30/19 23 10/29/2022 COMP. METAB OLIC PANEL (14) bilirubin, total 0.6 mg/dL 0.0-1. 2 Not Available [facility] [address] [place] [address], [address], 10/30/2022 03:08:48 10/30/19 23 10/29/2022 COMP. METAB OLIC PANEL (14) alkaline phosphatase 65 IU/L 44-121 Not Available [facility] [address] [place], [address], 10/30/2022 03:08:48 10/30/19 23 10/29/2022 COMP. METAB OLIC PANEL (14) AST (SGOT) 20 IU/L 0-40 Not Available [facility] [address] [place], [address], 10/30/2022 03:08:48 10/30/19 23 10/29/2022 COMP. METAB OLIC PANEL (14) ALT (SGPT) 26 IU/L 0-32 Not Available [facility] [address] [place], [address], 10/30/2022 03:08:48 10/30/19 23 10/30/2022 HEMOG LOBIN A1C hemoglobin A1C 5.2 % 4.8-5. 6 Predi abete s: 5.7 - 6.4 Diabe ana: >6.4 Glyce kathryn contr ol for adult s with diabe ana: <7.0 Not Available [facility] ([facility]) [address] [place], [address], 10/30/2022 06:13:43 11/24/19 24 11/25/2023 LIPID PANEL cholesterol, total 168 mg/dL 100-19 9 Not Available [facility] ([facility]) [address] [place], [address], 11/25/2023 08:27:11 11/24/19 24 11/25/2023 LIPID PANEL triglyceride s 191 mg/dL 0-149 above high normal Not Available [facility] ([facility]) [address] [place], [address], 11/25/2023 08:27:11 11/24/19 24 11/25/2023 LIPID PANEL HDL cholesterol 45 mg/dL >39 Not Available [facility]) [address] [place], [address], 11/25/2023 08:27:11 11/24/19 24 11/25/2023 LIPID PANEL VLDL cholesterol fareed 33 mg/dL 5-40 Not Available [facility] ([facility]) [address] [facility], [place], [address], 11/25/2023 08:27:11 11/24/19 24 11/25/2023 LIPID PANEL LDL chol calc ([facility]) 90 mg/dL 0-99 Not Available [facility]) [address] [place], [address], 11/25/2023 08:27:11 11/24/19 24 11/25/2023 COMP. METAB OLIC PANEL (14) glucose 60 mg/dL 70-99 below low normal Not Available [facility] ([facility]) [address] [place], [address], 11/25/2023 08:27:12 11/24/19 24 11/25/2023 COMP. METAB OLIC PANEL (14) BUN 9 mg/dL 6-20 Not Available [facility] ([facility]) [address] [place], [address], 11/25/2023 08:27:12 11/24/19 24 11/25/2023 COMP. METAB OLIC PANEL (14) creatinine 0.81 mg/dL 0.57-1 .00 Not Available [facility] ([facility]) [address] [place], [address], 11/25/2023 08:27:12 11/24/19 24 11/25/2023 COMP. METAB OLIC PANEL (14) eGFR 99 mL/mi n/1.7 3 >59 Not Available [facility] ([facility]) [address] [place], [address], 11/25/2023 08:27:12 11/24/19 24 11/25/2023 COMP. METAB OLIC PANEL (14) BUN/creatini ne ratio 11 9-23 Not Available [facility] ([facility]) [address] [facility] [place], [address], 11/25/2023 08:27:12 11/24/19 24 11/25/2023 COMP. METAB OLIC PANEL (14) sodium 141 mmol/ L 134-14 4 Not Available [facility] ([facility]) [address] [facility] [place], [address], 11/25/2023 08:27:12 11/24/19 24 11/25/2023 COMP. METAB OLIC PANEL (14) potassium 4.1 mmol/ L 3.5-5. 2 Not Available [facility] ([facility]) [address] [facility] [place], [address], 11/25/2023 08:27:12 11/24/19 24 11/25/2023 COMP. METAB OLIC PANEL (14) chloride 101 mmol/ L 96-106 Not Available [facility] ([facility]) [address] [place], [address], 11/25/2023 08:27:12 11/24/19 24 11/25/2023 COMP. METAB OLIC PANEL (14) carbon dioxide, total 27 mmol/ L 20-29 Not Available [facility] ([facility]) [address] [facility] [place], [address], 11/25/2023 08:27:12 11/24/19 24 11/25/2023 COMP. METAB OLIC PANEL (14) calcium 9.2 mg/dL 8.7-10 .2 Not Available [facility] ([facility]) [address] [facility] [place], [address], 11/25/2023 08:27:12 11/24/19 24 11/25/2023 COMP. METAB OLIC PANEL (14) protein, total 7.0 g/dL 6.0-8. 5 Not Available [facility] ([facility]) [address] [facility], [place], [address], 11/25/2023 08:27:12 11/24/19 24 11/25/2023 COMP. METAB OLIC PANEL (14) albumin 4.3 g/dL 3.9-4. 9 Not Available [facility] ([facility]) [address] [place], [address], 11/25/2023 08:27:12 11/24/19 24 11/25/2023 COMP. METAB OLIC PANEL (14) globulin, total 2.7 g/dL 1.5-4. 5 Not Available [facility] ([facility]) [address] [facility] [place], [address], 11/25/2023 08:27:12 11/24/19 24 11/25/2023 COMP. METAB OLIC PANEL (14) bilirubin, total 0.7 mg/dL 0.0-1. 2 Not Available [facility] ([facility]) [address] [facility], [place], [address], 11/25/2023 08:27:12 11/24/19 24 11/25/2023 COMP. METAB OLIC PANEL (14) alkaline phosphatase 62 IU/L 44-121 Not Available [facility]) [address] [facility] [place], [address], 11/25/2023 08:27:12 11/24/19 24 11/25/2023 COMP. METAB OLIC PANEL (14) AST (SGOT) 20 IU/L 0-40 Not Available [facility] ([place] [facility]) [address] [facility] [place], [address], 11/25/2023 08:27:12 11/24/19 24 11/25/2023 COMP. METAB OLIC PANEL (14) ALT (SGPT) 15 IU/L 0-32 Not Available [facility] ([place] [facility]) [address] [facility] [place], [address], 11/25/2023 08:27:12 11/24/19 24 11/24/2023 CBC, PLATE LET, NO DIFFE RENTI AL WBC 5.5 x10e3 /uL 3.4-10 .8 Not Available [facility] ([facility]) [address] [facility], [place], [address], 11/25/2023 08:27:13 11/24/19 24 11/24/2023 CBC, PLATE LET, NO DIFFE RENTI AL RBC 4.59 x10e6 /uL 3.77-5 .28 Not Available [facility] ([facility]) [address] [facility], [place], [address], 11/25/2023 08:27:13 11/24/1911/24/2023 CBC, PLATE LET, NO DIFFE RENTI AL hemoglobin 13.6 g/dL 11.1-1 5.9 Not Available [facility] ([facility]) [address] [facility], [place], [address], 11/25/2023 08:27:13 11/24/1911/24/2023 CBC, PLATE LET, NO DIFFE RENTI AL hematocrit 42.4 % 34.0-4 6.6 Not Available [facility] ([facility]) [address] [facility], [place], [address], 11/25/2023 08:27:13 11/24/1911/24/2023 CBC, PLATE LET, NO DIFFE RENTI AL MCV 92 fL 79-97 Not Available [facility] ([facility]) [address] [facility], [place], [address], 11/25/2023 08:27:13 11/24/1911/24/2023 CBC, PLATE LET, NO DIFFE RENTI AL MCH 29.6 pg 26.6-3 3.0 Not Available [facility] ([facility]) [address] [facility], [place], [address], 11/25/2023 08:27:13 11/24/19 24 11/24/2023 CBC, PLATE LET, NO DIFFE RENTI AL MCHC 32.1 g/dL 31.5-3 5.7 Not Available [facility] ([facility]) [address] [place], [address], 11/25/2023 08:27:13 11/24/19 24 11/24/2023 CBC, PLATE LET, NO DIFFE RENTI AL RDW 12.0 % 11.7-1 5.4 Not Available [facility] ([facility]) [address] [place], [address], 11/25/2023 08:27:13 11/24/19 24 11/24/2023 CBC, PLATE LET, NO DIFFE RENTI AL platelets 284 x10e3 /uL 150-45 0 Not Available [facility] ([facility]) [address] [place], [address], 11/25/2023 08:27:13 11/24/19 24 11/25/2023 TSH RFX ON ABNOR MAL TO FREE T4 TSH 3.930 uIU/m L 0.450- 4.500 Not Available [facility] ([facility]) [address] [place], [address], 11/25/2023 10:37:25 11/24/19 24 11/25/2023 HEMOG LOBIN A1C hemoglobin A1C 4.9 % 4.8-5. 6 Predi abete s: 5.7 - 6.4 Diabe ana: >6.4 Glyce kathryn contr ol for adult s with diabe ana: <7.0 Not Available [facility] ([facility]) [address] [place], [address], 11/25/2023 10:37:26 11/24/19 24 11/25/2023 VITAM IN D, 25-HY DROXY vitamin D, 25-hydroxy 37.4 NG/mL 30.0-1 00.0 Vitam in D defic iency has been defin ed by the Insti tute of Medic ine and an Endoc rine Socie ty pract ice guide line as a level of serum 25-OH vitam in D less than 20 ng/mL (1,2) . The Endoc rine Socie ty went on to furth er defin e vitam in D insuf ficie ncy as a level betwe en 21 and 29 ng/mL (2). 1. IOM (Inst itute of Medic ine). 2010. Dieta ry refer ence intak es for calci um and D. Aditya temple [place]: The [facility], 1928–1983 [facility] Press . 2. Clarissa westfall [place], Madi luong [place], Soni off-F augie i COLLIER, et al. Evalu ation , treat ment, and preve ntion of vitam in D defic iency : an Endoc rine Socie ty clini fareed pract ice guide line. JCEM. 2010; 96(7) :1911 -30. Not Available [facility] ([facility]) [address] [facility], [place], [address], 11/25/2023 10:37:27 01/29/20 24 01/29/2024 SARS- CoV+S ARS-C oV-2 (COVI D-19) Ag [Pres ence] in Respi rator y syste m speci men by Rapid immun oassa y influenza A Ag, POC Negati ve text: negati ve Influ hood A Ag, POC Negat hannah Negat hannah [facility] EDW Not Available Not Available 04/27/2024 03:12:07 01/29/20 24 01/29/2024 SARS- CoV+S ARS-C oV-2 (COVI D-19) Ag [Pres ence] in Respi rator y syste m speci men by Rapid immun oassa y influenza B Ag, POC Negati ve text: negati ve Influ hood B Ag, POC Negat hannah Negat hannah [facility] CC EDW Not Available Not Available 04/27/2024 03:12:07 01/29/20 24 01/29/2024 SARS- CoV+S ARS-C oV-2 (COVI D-19) Ag [Pres ence] in Respi rator y syste m speci men by Rapid immun oassa y covid-19 Ag POC Presum ptive Negati ve text: presum ptive negati ve, invali d COVID -19 Ag POC Presu mptiv e Negat hannah Presu mptiv e Negat hannah, Inval id [facility] CC EDW Not Available Not Available 04/27/2024 03:12:07 01/29/20 24 01/29/2024 SARS- CoV+S ARS-C oV-2 (COVI D-19) Ag [Pres ence] in Respi rator y syste m speci men by Rapid immun oassa y interpretati on and review of laboratory results Normal Not Available Not Available 04/10 03:12:07 Result Notes None recorded. Problems Name Problem SNOMED Code Status Onset Date Resolution Date Notes Provider Name and Address Organization Details Recorded Time Morbid obesity 697503729 Active 2021 Nata Martinez APN, FNP-C Attn: Rowdy toney,[address] [place], [address], [facility] 2 14:15:08 Allergic rhinitis 97905160 Active 2021 Nata Martinez APN, FNP-C Attn: Rowdy toney,[address] [place], [address], [place] - [facility] 2 14:33:08 Mixed anxiety and depressive disorder 090539125 Active 2021 Nata Martinez APN, FNP-C Attn: Rowdy toney,[address] [place], [address], [place] [facility] 2 14:33:09 Pain of bilateral hands 0982481442785 9109 Active 2021 Nata Martinez APN, FNP-C Attn: Rowdy toney,[address] [place], [address], [place] - [facility] 2 21:57:36 Obesity 537237630 Active 2022 Nata Martinez, TERRITORY REPRESENTATIVE, [employer] Attn: Accountin g,[address] [facility], [place], [address], [place] - [facility] 3 09:53:33 Vitamin D deficiency 80522363 Active 2022 Nata Martinez APN, [employer] Attn: Accountin g,[address] [facility], [place], [address], [place] - [facility] 3 10:03:06 Uric acid level above reference range 47749976 Active 2022 Nata Martinez APN, [employer] Attn: Accountin g,[address] [facility], [place], [address], [facility] 3 10:03:08 Hyperglycem ia 23820279 Active 2022 Natastevo Martinez APN, [employer] Attn: Rowdy g,[address] [facility], [place], [address], [place] - [facility] 3 15:59:37 Problem Notes None recorded. Procedures Surgical History Date Name Laterality Status Provider Name and Address Organization Details Recorded Time 11/13/19 23 Tonsillectomy completed Dominique Mccollum [place] - [place] 12/02/2022 15:37:27 04/05/19 23 Tubal Ligation completed Dominique Mccollum [facility] 04/11/2022 09:49:55 03/10/19 20 Cholecystectomy completed Dominique Mccollum PR - [facility] 06/22/2021 14:05:39 Removal of adenoids completed Dominique Mccollum PR - SI 06/22/2021 14:05:08 Imaging Results None recorded. Procedure Notes None recorded. Medical Equipment None Reported. Allergies Allergen ID Allergen Name Allergen Category Reaction Reaction Severity Criticality Documentation Date Start Date Code Code System Note Provider Name and Address Organization Details Recorded Time 808968 Sudafed medicatio n palpitati ons moderate Not available 06/22/202146929 2 RxNorm Dominique willard [place] - [facility] 2 14:00:05 172827 chlorhexi dine medicatio n hives Not available Not available 06/22/2021 4058 RxNorm Dominique Mccollum null, [place] - [facility] 14:00:25 Medications Name Sig Start Date Stop Date Status Note LastModified by Organization Details LastModified Time Prescriptio n - Prior Authorizati on Request 08/04 completed Not Available Not Available Not Available nifedipine ER 30 mg tablet,exte nded release 24 hr COMPLETE NIFEDIPIN E 60 MG AND THEN START 30 MG 1 BY MOUTH EVERY DAILY FOR 7 DAYS 10/29 completed Not Available Not Available Not Available amoxicillin 500 mg capsule TAKE 1 CAPSULE BY MOUTH THREE TIMES A DAY FOR 10 DAYS 10/29 completed Not Available Not Available Not Available acetaminoph en 325 mg tablet PLEASE SEE ATTACHED FOR DETAILED DIRECTION S 12/02 completed Not Available Not Available Not Available prednisone 10 mg tablet TAKE 5 TABLET BY MOUTH DAILY FOR 2 DAYS THEN DECREASE BY 1 TABLET EVERY 2 DAYS UNTIL ALL TAKEN 10/29 completed Not Available Not Available Not Available clindamycin HCl 300 mg capsule 12/02 completed Not Available Not Available Not Available azithromyci n 250 mg tablet TAKE 2 TABLETS BY MOUTH FOR 1 DAY THEN TAKE 1 TABLET BY MOUTH DAILY FOR 4 DAYS 10/29 completed Not Available Not Available Not Available ibuprofen 800 mg tablet TAKE 1 TABLET BY MOUTH THREE TIMES DAILY NEEDED FOR PAIN 10/29 completed Not Available Not Available Not Available ofloxacin 0.3 % eye drops ADMINISTE R 2 DROPS INTO THE LEFT EYE EVERY 4 (FOUR) HOURS 03/25 completed Not Available Not Available Not Available phenazopyri dine 200 mg tablet TAKE 1 TABLET BY MOUTH THREE TIMES DAILY FOR 5 DOSES 11/23 completed Not Available Not Available Not Available metronidazo le 0.75 % (37.5 mg/5 gram) vaginal gel INSERT ONE APPLICATO RFUL VAGINALLY AT BEDTIME FOR 5 NIGHTS 04/11 completed Not Available Not Available Not Available prednisone 20 mg tablet TAKE 1 TABLET BY MOUTH DAILY 10/29 completed Not Available Not Available Not Available phentermine 15 mg capsule TAKE 1 CAPSULE BY MOUTH EVERY DAY 05/11 completed Not Available Not Available Not Available phentermine 30 mg capsule TAKE 1 CAPSULE BY MOUTH EVERY DAY active Not Available Not Available No t Available amoxicillin 875 mg tablet TAKE 1 TABLET BY MOUTH TWICE A DAY FOR 10 DAYS 10/29 completed Not Available Not Available Not Available clindamycin 1 % topical gel APPLE PEA SIZED AMOUNT TO EACH CHEEK AND COVER FACE ONCE DAILY active Not Available Not Available No t Available nifedipine 10 mg capsule EVERY 6 HOURS NEEDED FOR CONTRACTI ONS 04/11 completed Not Available Not Available Not Available cephalexin 500 mg capsule TAKE 1 CAPSULE BY MOUTH EVERY 12 HOURS FOR 7 DAYS 11/23 completed Not Available Not Available Not Available docusate sodium 100 mg capsule 06/22 completed Not Available Not Available Not Available ibuprofen 600 mg tablet TAKE 1 TABLET BY MOUTH EVERY 6 HOURS NEEDED FOR PAIN 12/02 completed Not Available Not Available Not Available methylpredn isolone 4 mg tablets in a dose pack FOLLOW PACKAGE DIRECTION S 10/29 completed Not Available Not Available Not Available albuterol sulfate HFA 90 mcg/actuati on aerosol inhaler INHALE 2 PUFFS BY MOUTH EVERY 6 HOURS NEEDED FOR WHEEZING OR SHORTNESS OF BREATH 12/02 completed Not Available Not Available Not Available ondansetron 4 mg disintegrat ing tablet 04/11 completed Not Available Not Available Not Available cefdinir 300 mg capsule TAKE 1 CAPSULE BY MOUTH TWICE A DAY FOR 10 DAYS 10/29 completed Not Available Not Available Not Available metoclopram harmeet 10 mg tablet TAKE 1 TABLET BY MOUTH FOUR TIMES A DAY 04/11 completed Not Available Not Available Not Available amoxicillin 875 mg-potassiu m clavulanate 125 mg tablet TAKE 1 TABLET BY MOUTH TWICE DAILY FOR 10 DAYS 10/29 completed Not Available Not Available Not Available oxycodone 5 mg tablet TAKE 1 TABLET BY MOUTH EVERY 6 HOURS NEEDED FOR PAIN 12/02 completed Not Available Not Available Not Available escitalopra m 10 mg tablet 06/11 completed Not Available Not Available Not Available escitalopra m 20 mg tablet TAKE 1 TABLET BY MOUTH EVERY DAY active Not Available Not Available No t Available cyclobenzap rine 5 mg tablet TAKE 1 TABLET BY MOUTH THREE TIMES DAILY NEEDED FOR MUSCLE SPASM 10/29 completed Not Available Not Available Not Available escitalopra m 5 mg tablet 06/22 completed Not Available Not Available Not Available nitrofurant oin monohydrate /macrocryst als 100 mg capsule TAKE 1 CAPSULE BY MOUTH EVERY 12 HOURS FOR 5 DAYS 04/27 completed Not Available Not Available Not Available clindamycin 1.2 % (1 % base)-benzo yl peroxide 5 % topical gel APPLY A PEA SIZE AMOUNT TOPICALLY TO BOTH CHEEKS AND SPREAD OVER ENTIRE FACE ONCE IN THE MORNING active Not Available Not Available No t Available adapalene 0.3 % topical gel APPLY PEASIZED AMOUNT TO BOTH CHEEKS AND SPREAD OVER ENTIRE FACE ONCE AT NIGHT active Not Available Not Available No t Available PROP DRAWER-PNV-DHA 28 mg iron-1 mg-200 mg capsule 06/22 completed Not Available Not Available Not Available Prena1 Danielle 30 mg-1.4 mg-200 mg capsule,imm ediate - delay release 04/11 completed Not Available Not Available Not Available Wegovy 1 mg/0.5 mL subcutaneou s pen injector Inject 1 mg every week by subcutane ous route. 11/23 completed Not Available Not Available Not Available Wegovy 0.25 mg/0.5 mL subcutaneou s pen injector 2024 active Not Available Not Available Not Avai lable Wegovy 0.5 mg/0.5 mL subcutaneou s pen injector ADMINISTE R 0.5 MG UNDER THE SKIN EVERY WEEK active Not Available Not Available No t Available Vitals Date Recorded Body height Body mass index (BMI) Body weight Oxygen saturation Oxygen saturation in Arterial blood by Pulse oximetry Heart rate Respiratory rate Body temperature Systolic blood pressure Diastolic blood pressure Provider Name and Address Organization Details Last Updated DateTime 3 157.48 cm 43.9 kg/m2 095002. 17 g 95 % 95 % 70 /min 16 /min 98 [degF] 128 mm[Hg] 90 mm[Hg] Dominique Mccollum [place] - [facility] 3 15:44:20 Date Recorded Body height Body mass index (BMI) Body weight Oxygen saturation Oxygen saturation in Arterial blood by Pulse oximetry Heart rate Respiratory rate Body temperature Systolic blood pressure Diastolic blood pressure Provider Name and Address Organization Details Last Updated DateTime 3 157.48 cm 41.7 kg/m2 716801. 06 g 95 % 95 % 88 /min 16 /min 98 [degF] 114 mm[Hg] 80 mm[Hg] Dominique Mccollum [facility] 3 15:38:33 Date Recorded Body height Body mass index (BMI) Body weight Oxygen saturation Oxygen saturation in Arterial blood by Pulse oximetry Heart rate Respiratory rate Body temperature Systolic blood pressure Diastolic blood pressure Provider Name and Address Organization Details Last Updated DateTime 4 157.48 cm 39.5 kg/m2 41921.5 9 g 99 % 99 % 87 /min 14 /min 97.3 [degF] 133 mm[Hg] 78 mm[Hg] Hannah Hermosillo MA [facility] 4 17:00:48 Date Recorded Body height Body mass index (BMI) Body weight Oxygen saturation Oxygen saturation in Arterial blood by Pulse oximetry Respiratory rate Body temperature Heart rate Systolic blood pressure Diastolic blood pressure Provider Name and Address Organization Details Last Updated DateTime 4 157.48 cm 32.6 kg/m2 43097.4 4 g 98 % 98 % 16 /min 97.5 [degF] 82 /min 126 mm[Hg] 88 mm[Hg] Dominique Mccollum [facility] 4 11:21:07 Date Recorded Body height Body mass index (BMI) Body weight Oxygen saturation Oxygen saturation in Arterial blood by Pulse oximetry Respiratory rate Body temperature Heart rate Systolic blood pressure Diastolic blood pressure Provider Name and Address Organization Details Last Updated DateTime 5 157.48 cm 35.3 kg/m2 58304.3 3 g 98 % 98 % 16 /min 97.3 [degF] 72 /min 128 mm[Hg] 84 mm[Hg] Dominique Mccollum Octavio [facility] 5 11:17:56 Social History Question Answer Notes LastModified by Organization Details LastModified Time Tobacco Smoking Status Never Smoker Dominique willard [facility] 06/22/2021 14:03:25 What Is Your Level Of Alcohol Consumption? Occasional [email or web address] Information not available 06/22/2021 Are You Blind Or Do You Have Difficulty Seeing? No Night Driving Glass Information not available 03/25/2023 What Is Your Level Of Caffeine Consumption? Moderate Information not available 03/25/2023 In The 14 Days Before Symptom Onset, Have You Had Close Contact With A Laboratory-confi rmed COVID-19 While That Case Was Ill? No [email or web address] Information not available 06/22/2021 In The 14 Days Before Symptom Onset, Have You Had Close Contact With A Person Who Is Under Investigation For COVID-19 While That Person Was Ill? No [email or web address] Information not available 06/22/2021 Have You Been To An Area Known To Be High Risk For COVID-19? No Information not available 06/22/2021 Are You Currently Employed? No [email or web address] Information not available 10/29/2022 Are You Deaf Or Do You Have Serious Difficulty Hearing? No [email or web address] Information not available 06/22/2021 What Type Of Diet Are You Following? 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 Yes [email or web address] Information not available 06/22/2021 What Was The Date Of Your Most Recent Tobacco Screening? 04/27/2024 Information not available 04/27/2024 How Many Children Do You Have? 4 [email or web address] Information not available 10/29/2022 What Is Your Relationship Status? [email or web address] Information not available 06/22/2021 Do You Use Your Seat Belt Or Car Seat Routinely? Yes [email or web address] Information not available 06/22/2021 Are You Sexually Active? Yes [email or web address] Information not available 06/22/2021 Do You Have Smoke And Carbon Monoxide Detectors In Your Home? Yes [email or web address] Information not available 06/22/2021 Are You Passively Exposed To Smoke? No [email or web address] Information not available 06/22/2021 Do You Feel Stressed (tense, Restless, Nervous, Or Anxious, Or Unable To Sleep At Night)? [id number] [email or web address] Information not available 10/29/2022 Do You Use Any Illicit Or Recreational Drugs? No [email or web address] Information not available 06/22/2021 Do You Use Sunscreen Routinely? No [email or web address] Information not available 06/22/2021 Has Tobacco Cessation Counseling Been Provided? No [email or web address] Information not available 04/11/2022 Do You Or Have You Ever Used Any Other Forms Of Tobacco Or Nicotine? No [email or web address] Information not available 06/22/2021 Sex: Female Functional Status Question Answer Note LastModified by Organization D etails LastModified Time Are you able to care for yourself? Yes [email or web address] Information not available 06/22/2021 What is your exercise level? Moderate Information not available 04/27/2024 Mental Status None recorded. Family History Relationship Description Onset Age of this Age Resolved Age Notes LastModified by Organization Details LastModified Time Maternal Grandmother Malignant tumor of colon [email or web address] Not available 06/22 14:02:16 Paternal Grandmother Malignant tumor of colon Not available 06/22 14:02:21 Maternal Aunt Malignant tumor of breast [email or web address] Not available 06/22 14:02:31 Maternal Aunt Malignant tumor of thyroid gland [email or web address] Not available 06/22 14:02:46 Maternal Aunt Diabetes mellitus [email or web address] Not available 06/22 14:03:03 Maternal Aunt Malignant tumor of breast [email or web address] Not available 04/11 09:49:01 Father No current problems or disability Not available 06/22 14:13:42 Mother No current problems or disability Not available 06/22 14:13:42 Mother Diabetes mellitus [email or web address] Not available 04/11 09:49:11 Notes:4/5 aunts have thyroid s disorders Medical History Condition Response Coronary Artery Disease N Atrial Fibrillation N High Blood Pressure N Thyroid Problems N Kidney or Bladder Problems N GI Problems N Depression Y COPD N Blood Clots N Eating Disorder N Skin Problems N Anemia N Heart Attack (NM) N Diabetes N Anxiety Disorder Y Muscle, Joint, or Bone Problems N Seizures/Epilepsy N Acid Reflux (GERD) N Cancer N Stroke N Asthma N Allergies Y Substance Abuse N High Cholesterol N Hepatitis N Liver Disease N Schizophrenia N Headaches N Osteoporosis N Heart Failure N Gynecological History Statement/Question Response Flow Moderate Date of LMP 04/08/2024 Menses Monthly Y Duration of Flow (days) 4 Age at Menarche 14 Current Control Method Tubal Ligat ion Age at First Child 27 LMP Approximate Obstetrics History GPAL:G 4 P 4 0 0 4 Type Value Full Term 4 Living 4 Total 4 Immunizations Vaccine Type Date Status Note Provider Nam e and Address Organization Details Recorded Time Hib, unspecified formulation 3 completed Nata Martinez TERRITORY REPRESENTATIVE, [employer] Attn: Accounting,[address] [place], [place], [address] [place] [address], [facility] 04/11/2022 09:54:23 Hib, unspecified formulation 4 completed Nata Martinez TERRITORY REPRESENTATIVE, [employer] Attn: Accounting,[address] [place], [place], [address] [place] [address], [facility] 04/11/2022 09:54:23 Hib, unspecified formulation 3 completed Nata Martinez TERRITORY REPRESENTATIVE, [employer] Attn: Accounting,[address] [place], [address] [place] [address], [facility] 04/11/2022 09:54:23 Hib, unspecified formulation 3 completed Nata Martinez TERRITORY REPRESENTATIVE, [employer] Attn: Accounting,[address] [place], [place], [address] [place] [address] - [facility] 04/11/2022 09:54:23 IPV 3 completed Nata Martinez TERRITORY REPRESENTATIVE, [employer] Attn: Accounting,[address] [place], [address] [place] [address], [facility] 04/11/2022 09:54:23 IPV 3 completed Nata Martinez TERRITORY REPRESENTATIVE, [employer] Attn: Accounting,[address] [place], [address] [place] [address], [facility] 04/11/2022 09:54:23 IPV 8 completed Nata Martinez TERRITORY REPRESENTATIVE, [employer] Attn: Accounting,[address] [place], [address] [place] [address], [facility] - [facility] 04/11/2022 09:54:23 Influenza, MDCK, quadrivalent, PF 2 completed Nata Martinez, TERRITORY REPRESENTATIVE, [employer] Attn: Accounting,[address] [facility], [place], [place], [address] [place] [address], [facility] [place] 04/11/2022 09:54:23 Influenza, MDCK, quadrivalent, preservative 9 completed Nata Martinez, TERRITORY REPRESENTATIVE, [employer] Attn: Accounting,[address] [facility], [place], [place], [address] [place] [address], [facility] [place] 04/11/2022 09:54:23 Influenza, live, trivalent, intranasal 1 completed Nata Martinez TERRITORY REPRESENTATIVE, [employer] Attn: Accounting,[address] [facility], [place], [place], [address] [place] [address] 04/11/2022 09:54:23 MMR 4 completed Nata Martinez, TERRITORY REPRESENTATIVE, [employer] Attn: Accounting,[address] [facility], [place], [address] [place] [address] 04/11/2022 09:54:23 MMR 8 completed Nata Martinez TERRITORY REPRESENTATIVE, [employer] Attn: Accounting,[address] [facility], [place], [place], [address] [place] [address] 04/11/2022 09:54:23 COVID-19 vaccine, vector-nr, rS-Ad26, PF, 0.5 mL 1 completed Nata Martinez, TERRITORY REPRESENTATIVE, [employer] Attn: Accounting,[address] [facility], [place], [place], [address] [place] [address] [facility] 04/11/2022 09:54:23 Tdap 5 completed Nata Martinez, TERRITORY REPRESENTATIVE, [employer] Attn: Accounting,[address] [place], [address] [place] [address] [facility] 04/11/2022 09:54:23 HPV, unspecified formulation 2 completed Nata Martinez, TERRITORY REPRESENTATIVE, [employer] Attn: Accounting,[address] [facility], [place], [address], [facility] - [facility] 04/11/2022 09:54:23 HPV, unspecified formulation 1 completed Nata Martinez, TERRITORY REPRESENTATIVE, [employer] Attn: Accounting,[address] [facility], [place], [address], [facility] 04/11/2022 09:54:23 Influenza, split virus, trivalent, preservative 1 completed Nata Martinez, TERRITORY REPRESENTATIVE, [employer] Attn: Accounting,[address] [facility], [place], [address], [facility] 04/11/2022 09:54:23 HPV, quadrivalent 1 completed Nata Martinez, TERRITORY REPRESENTATIVE, [employer] Attn: Accounting,[address] [facility], [place], [address], [facility] 04/11/2022 09:54:23 Hep B, adolescent or pediatric 3 completed Nata Martinez, TERRITORY REPRESENTATIVE, [employer] Attn: Accounting,[address] [facility], [place], [address], [facility] 04/11/2022 09:54:23 Hep B, adolescent or pediatric 3 completed Nata Martinez, TERRITORY REPRESENTATIVE, [employer] Attn: Accounting,[address] [facility], [place], [address], [facility] 04/11/2022 09:54:23 Hep B, adolescent or pediatric 3 completed Nata Martinez, TERRITORY REPRESENTATIVE, [employer] Attn: Accounting,[address] [facility], [place], [address], [facility] 04/11/2022 09:54:23 Hep A, ped/adol, 2 dose 2 completed Nata Martinez, TERRITORY REPRESENTATIVE, [employer] Attn: Accounting,[address] [facility], [place], [address], [facility] 04/11/2022 09:54:23 Hep A, pediatric, unspecified formulation 1 completed Nata Martinez, TERRITORY REPRESENTATIVE, [employer] Attn: Accounting,[address] [facility], [place], [address] [place] [address], [facility] [place] 04/11/2022 09:54:23 meningococcal C conjugate 1 completed Nata Martinez, TERRITORY REPRESENTATIVE, [employer] Attn: Accounting,[address] [facility], [place], [address] [place] [address], [facility] 04/11/2022 09:54:23 DTaP 3 completed Nata Martinez, TERRITORY REPRESENTATIVE, [employer] Attn: Accounting,[address] [facility], [place], [address] [place] [address], [facility] [place] 04/11/2022 09:54:24 DTaP 3 completed Nata Martinez, TERRITORY REPRESENTATIVE, [employer] Attn: Accounting,[address] [facility], [place], [address] [place] [address], [facility] [place] 04/11/2022 09:54:24 DTaP 8 completed Nata Martinez, TERRITORY REPRESENTATIVE, [employer] Attn: Accounting,[address] [facility], [place], [address] [place] [address], [facility] [place] 04/11/2022 09:54:24 DTaP 4 completed Nata Martinez, TERRITORY REPRESENTATIVE, [employer] Attn: Accounting,[address] [facility], [place], [address] [place] [address], [facility] 04/11/2022 09:54:24 DTaP 3 completed Nata Martinez, TERRITORY REPRESENTATIVE, [employer] Attn: Accounting,[address] [facility], [place], [address] [place] [address], [facility] 04/11/2022 09:54:24 Influenza, split virus, quadrivalent, PF 0 completed Nata Martinez, TERRITORY REPRESENTATIVE, [employer] Attn: Accounting,[address] [facility], [place], [address] [place] [address], [facility] 04/11/2022 09:54:24 Influenza, split virus, quadrivalent, PF 8 completed Nata Martinez APN, [employer] Attn: Accounting,[address] [facility], [place], [address], [place] [facility] 04/11/2022 09:54:24 Tdap 2 completed Hannah Hermosillo [place], [place] [facility] 03/25/2023 16:57:39 Influenza, split virus, trivalent, PF 4 completed LUCY [place], [place] [facility] 11/24/2023 12:07:00 Past Encounters Encounter ID Performer Location Encounter Start Date Encounter Closed Date Diagnosis/Indication Diagnosis SNOMED-CT Code Diagnosis ICD10 Code Diagnosis Note [id number] MD Cindi Ferrera (Adult Med) [address] [place] [address] 06/22/2021 13:48:05 06/25/2021 12:47:27 Adult health examination 815787623 Z00.01 Encouraged routine LICENSING SERVICES CLERK, vision, dental exams, well balanced diet. Morbid obesity 594371565 E66.01 advised low fat, low cholestero l diet, regular exercise and weight reduction. 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 Obesity 360544910 E66.9 advised low fat, low cholestero l diet, regular exercise and weight reduction. Mixed anxi ety and depressive disorder 802547628 F41.8 stable on lexapro 10 mg Uric acid level above reference range 25850256 E79.0 Vitamin D deficiency 347 21044 E55.9 Family his tory of hereditary disease 305882613 Z84.81 two children have hereditary spherocyto sis, may want to see genetics [id number] MD Cindi Ferrera (Adult Med) [address] [place] [address] 10/29/2022 15:28:05 10/30/2022 09:33:56 Obesity 087148514 E66.9 advised low fat, low cholestero l diet, regular exercise and weight reduction. Hyperglycemia 11257127 R 73.9 will check labs [id number] MD Cindi Ferrera (Adult Med) [address] [place] [address] 12/02/2022 15:26:52 12/04/2022 11:56:58 Obesity 188252861 E66.9 advised low fat, low cholestero l diet, regular exercise and weight reduction. Pain in throat 614859995 R07.0 healing from recent tonsillect ailyn [id number] MD Cindi Ferrera (Adult Med) [address] [place] [address] 03/25/2023 16:36:50 04/03/2023 10:40:44 Obesity 415778439 E66.9 advised low fat, low cholestero l diet, regular exercise and weight reduction. Hyperglycemia 67248909 R 73.9 will check lab, cont glp1 Vitamin D deficiency 347 83460 E55.9 check labcont supplement Mixed anxi ety and depressive disorder 937969923 F41.8 stable on lexapro 10 mg Allergic rhinitis 491581 04 J30.9 start flonase, zyrtec [id number] MD Cindi Ferrera (Adult Med) [address] [place] [address] 11/24/2023 10:55:01 11/26/2023 11:27:39 Obesity 804835981 E66.9 advised low fat, low cholestero l diet, regular exercise and weight reduction. ok to cont phentermin e, is taking eod Mixed anxi ety and depressive disorder 072789567 F41.8 stable on lexapro 10 mgdenies SI HI or SE Administra tion of influenza vaccine 27946216 Z23 [id number] MD Cindi Ferrera (Adult Med) [address] [place] [address] 04/27/2024 10:58:03 04/28/2024 11:05:18 Obesity 427411944 E66.9 advised low fat, low cholestero l diet, regular exercise and weight reduction. ok to cont phentermin e, is taking eodpt did better on Wegovy, will send rx Family his tory of cancer of colon 453899859 Z80.0 grandma CA and mother polyps with yearly scopes to check;will send to GI Mixed anxi ety and depressive disorder 317701242 F41.8 stable on lexapro 20 mgdenies SI HI or SE Health Concerns Section Related Observation LastModified by Organization Detai ls LastModified Time None Recorded Concern Status LastModified by Organization Details LastModified Time None Recorded Advance Directives Directive None Recorded Payers Encounter Date Sequence Insurance Name Policy Number Policy Lares Covered Member ID Lares Member ID Guarantor Name 10/29/2022 1 [facility] - [employer] [id number] Luis Miguel Spence [id number] Namrata Spence 12/02/2022 1 [facility] - [employer] [id number] Luis Miguel Spence [id number] Namrata Spence 03/25/2023 1 [facility] - [employer] - [employer] [id number] Luis Miguel Spence [id number] Namrata Spence 11/24/2023 1 [employer] - [employer] [id number] Luis Miguel Spence [id number] Namrata Spence 04/27/2024 1 [employer] - [employer] [id number] Luis Miguel Spence [id number] Namrata Spence Notes Date Note Type Note Provider Name and Address Organization Details Recorded Time 10/29/2022 text/html discuss weight l oss options. Mom currently uses ozempic but she is diabetic. Pt is pre-diabetic. states she is very active and tries to watch what she eats. pt thinks ozempic will help with her blood sugar well Nata Martinez APN, [employer] Attn: Accounting,[address] [facility], [place], [address], [place] [facility] 10/29/2022 22:34:17 12/02/2022 text/html 10/29/22:discuss weight loss options. Mom currently uses ozempic but she is diabetic. Pt is pre-diabetic. states she is very active and tries to watch what she eats. pt thinks ozempic will help with her blood sugar well 12/02/22:pt has tonsillectomy 3 weeks ago. states she has strep during the surgery. states 2 weeks after surgery she went to [facility] outpatient center and tested positive strep again.- given abx and finished. States her throat still hurts but may be because of the surgery Nata Martinez APN, [employer] Attn: Accounting,[address] [facility], [place], [address], [place] [facility] 12/02/2022 16:06:11 03/25/2023 text/html 10/29/22:discuss weight loss options. Mom currently uses ozempic but she is diabetic. Pt is pre-diabetic. states she is very active and tries to watch what she eats. pt thinks ozempic will help with her blood sugar well 12/02/22:pt has tonsillectomy 3 weeks ago. states she has strep during the surgery. states 2 weeks after surgery she went to [facility] outpatient center and tested positive strep again.- given abx and finished. States her throat still hurts but may be because of the surgery 03/25/22:rx out of stock, xmas harder to follow diet; Nata Martinez APN, PRINTED CIRCUIT BOARDS ROUTER-C Attn: Accounting,[address] [facility], [place], [address], [place] - [facility] 04/02/2023 21:36:29 11/24/2023 text/html 10/29/22:discuss weight loss options. Mom currently uses ozempic but she is diabetic. Pt is pre-diabetic. states she is very active and tries to watch what she eats. pt thinks ozempic will help with her blood sugar well 12/02/22:pt has tonsillectomy 3 weeks ago. states she has strep during the surgery. states 2 weeks after surgery she went to [facility] outpatient center and tested positive strep again.- given abx and finished. States her throat still hurts but may be because of the surgery 03/25/22:rx out of stock, xmas harder to follow diet; 11/24/23:feels better, taking phentermine eod and that seems to work ok for her, also running, mood improved in spite of life stress right now Nata Martinez APN, PRINTED CIRCUIT BOARDS ROUTER-C Attn: Accounting,[address] [place], [address], [facility] 11/24/2023 11:57:37 04/27/2024 text/html here for follow up on weight loss, would like to go back on Wegovy if possible mood- stable, feels good on current dose, denies SI or HI, sleep is good Nata Martinez APN, PRINTED CIRCUIT BOAR[employer] ROUTER-C Attn: Accounting,[address] [place], [address], [facility] 04/27/2024 14:20:25 OBGyn Episode No OBEpisode recorded.
--- OUTSIDE RECORDS SUMMARY | 2024-07-11 16:39 | XMS_ITS | Clinical Summary ---
Author Organization [facility] Address [facility] [place] [address] Care Team Providers Care Hospital Nurse Liaison Name Role Phone Nata Mario APRN-DIE LAY OUT WORKER Primary Care Provider [phone] Source Comments [facility],non-owned Affiliates and Associated Physician Practices is amultiple site organization consisting of ambulatory clinics and hospital sitesin [place], [place]. This disclosure is being madepursuant to the Care Everywhere program and may not contain all information available regarding this patient. Last updated 17.[facility] [employer] Allergies Active Allergy Reactions Criticality Noted Date Comments Chlorhexidine Rash Medium 02/26/2017 Medications * Be aware that medications may not be up to date on this document. Alwaysverify current medications with the patient. escitalopram (Lexapro) 10 MG tablet Take 1 (one) tablet by mouth once daily 3 Active albuterol HFA (Proventil; Ventolin; Proair) 108 (90 Base) MCG/ACT inhaler Inhale 2 (two) puffs by mouth every 4 hours as needed 3 Active cyclobenzaprin e (Flexeril) 5 MG tablet Take 1 (one) tablet by mouth 3 times daily as needed FOR MUSCLE SPASM 3 Active NIFEdipine (Procardia) 10 MG capsule EVERY 6 HOURS NEEDED FOR CONTRACTIONS 2 Active NIFEdipine CR osmotic 24hr (Procardia-XL) 30 MG tablet COMPLETE NIFEDIPINE 60 MG AND THEN START 30 MG 1 BY MOUTH EVERY DAILY FOR 7 DAYS 3 Active ondansetron, disintegrating , (Zofran ODT) 4 MG tablet Take 1 (one) tablet by mouth every 8 hours as needed 2 Active ofloxacin (Ocuflox) 0.3 % ophthalmic solution INSTILL 1 DROP IN RIGHT EYE EVERY 4 HOURS FOR 7 DAYS 3 Active semaglutide (Wegovy) 0.25 MG/0.5ML pen Inject 0.25 (one-quarter) mg subcutaneously every 7 days Active acetaminophen (Tylenol) 325 MG tablet Take 2 (two) tablets by mouth every 6 hours as needed for Fever or Pain Maximum allowable Acetaminophen amount = 4 Grams (4000 mg) / 24 hours. 30 tablet 1 3 Active ibuprofen (Motrin) 600 MG tablet Take 1 (one) tablet by mouth every 6 hours as needed for Pain 30 tablet 3 Active oxyCODONE, immediate release, (Roxicodone) 5 MG tabletIndicati ons:Tonsilliti s Take 1 (one) tablet by mouth every 6 hours as needed for Pain 25 tablet 3 Active clindamycin (Cleocin) 300 MG capsule Take 1 (one) capsule by mouth once 3 Active Active Problems No known active problems Immunizations Immunization Administration Dates Next Due INFLUENZA VACCINE, TRIV. (AF LURIA, FLUZONE TRIVALENT; 6MO+) (IIV3) 01/15/2022,10/08/2020 COVID KARLEE PRIMARY 18+YR 05/08/2020 FLU VACCINE QUAD IIV4 PF ID 12/11/2015 FLU VACCINE TRI IIV3 SPLIT PF IM (FLUVIRIN) 11/2017 INFLUENZA VACCINE, QUADR. 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 Gender Identity Not on file Sexual Orientation Not on file Last Filed Vital Signs Vital Sign Reading Time Taken Comments Blood Pressure 105/62 11/12/2022 11:36 AM CDT Pulse 71 11/12/2022 11:36 AM CDT Temperature 36.5 C (97.7 F) 11/12/2022 10:56 AM CDT Respiratory Rate 13 11/12/2022 11:36 AM CDT Oxygen Saturation 96% 11/12/2022 11:36 AM CDT Inhaled Oxygen Concentration - - Weight 108.9 kg (240 lb) 11/27/2022 10:22 AM CDT Height 157.5 cm (5' 2 ) 11/27/2022 10:22 AM CDT Body Mass Index 43.9 11/27/2022 10:22 AM CDT Plan of Treatment Health Maintenance Due Date Last Done Comments PAP SMEAR 1992 HIV SCREENING 2007 HEPATITIS C SCREENING 04/14/2010 HEPATITIS B VACCINE (1 of 3 - 19+ 3-dose series) 2011 COVID-19 VACCINE (2 - season) 2023 05/08/2020 DEPRESSION SCREENING 03/10/2024 DTAP/TDAP/TD VACCINES (4 - Td or Tdap) 02/13/2032 02/12/2022, 09/22/2019, 08/01/2017 ZOSTER VACCINE (1 of 2) 2042 INFLUENZA VACCINE Completed 11/24/2023, , 01/12/2022, Additional history exists HIB VACCINE Aged Out No longer eligi ble based on patient's age to complete this topic HPV VACCINE Aged Out No longer eligi ble based on patient's age to complete this topic MENINGOCOCCAL (Group B) VACCINE SHARED DECISION-MAKING Aged Out No longer eligible based on patient's age to complete this topic MENINGOCOCCAL GROUPS A/C/Y/W VACCINE Aged Out No longer eligible based on patient's age to complete this topic PNEUMOCOCCAL VACCINE Aged Out No long er eligible based on patient's age to complete this topic Insurance [facility] Care Teams Hospital Nurse Liaison Relationship Specialty Start Date End Date Mario, JUANI Peace-SANTOS [address] [place] [address] PCP - General Nurse Practitioner Family 10/30/22
--- OUTSIDE RECORDS SUMMARY | 2024-07-11 16:39 | XMS_ITS | Clinical Summary ---
Author Organization [address] Address [address] [place] [phone] Care Team Providers Care Traffic Sign Erection Supervisor Name Role Phone Shelbi, Nata Alejo NP Primary Care Provider No, Physician Unavailable Allergies Active Allergy Reactions Criticality Noted Date [...] shortness of breath 1 each 3 07/11/19 Discontinu ed(Therapy completed) ofloxacin (OCUFLOX) 0.3 % [...] reaction 02/26/2017 Overview (10/08/2022): chloraprep - severe Encounters Date Type Department Care Team Description 07/11/2024 12:02 AM CD[place] [address] Midline low back pain without sciatica, unspecified chronicity 07/11/2024 Telephone [facility] Convenient Care at [address] [place] [phone] Opal Avilez NP 07/10/2024 5:30 PM CDT Office Visit [facility] Medical [facility] Care at [address] [phone] Mariama Pryor, SRUTHI Midline low back pain without sciatica, unspecified chronicity (Primary Dx); Glucose found in urine on examination from Last 3 Months Immunizations Immunization Administration Dates Next Due Influenza, Quadrivalent, Spl it, Preservative Free, Intradermal 12/11/2015 Influenza, Quadrivalent, Spl it, Preservative Free, Intramuscular 12/14/2019 Surgical History Surgery Date Site/Laterality Comments CHOLECYSTECTOMY WISDOM TOOTH EXTRACTION BUNIONECTOMY Medical History Medical History Date Comments Hx Other Medical 2001 adenoidectomy Family History Medical History Relation Name Comments Other Father Alive and well; Hyperlipidemia Mother Hyperlipidemi a; Other Mother Alive and well; Relation Name Status Comments Father Alive Mother Alive Social History Tobacco Use Types Packs/Day Years Used Date Smoking Tobacco: Never Smokeless Tobacco: Never Tobacco Cessation:Counseling Given: Yes Alcohol Use Standard Drinks/Week Comments No 0 (1 standard drink = 0.6 oz pur e alcohol) Comments No Sex and Gender Information Value Date Recorded Sex Assigned at Not on file 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 Gender Identity Not on file Sexual Orientation Not on file Obstetrics History Last Filed Vital Signs Vital Sign Reading [...] 07/10/2024 5:46 PM CDT Plan of Treatment Health Maintenance Due Date Last Done Comments Cervical Cancer Screening 1992 Depression Screening 1992 Hepatitis C Screening 1992 Regular Well Visit/Exam 18-64 2010 Varicella Vaccines (1 of 2 - 13+ 2-dose series) 01/25/2011 Covid-19 Vaccine (2 - 2023- season) 2023 05/14/2020 DTaP/Tdap/Td Vaccine (11 - Td or Tdap) 02/13/2032 02/12/2022, 12/17/2021, 09/22/2019, Additional history exists Hepatitis B Screening Completed 01/16/1993 , 1990, 1992 HPV Vaccines Completed 04/12/2011, 12/09, 10/05/2010 Influenza Vaccine Completed 11/24/2023, , 01/12/2022, Additional history exists Pneumococcal vaccine <65 Aged Out No longer eligible based on patient's age to complete this topic Procedures Procedure Name Priority Date/Time Associated Diagnosis [...] (07/10/2024 5:53 PM CDT) Color, Urine, POC [place] Clarity, ur, POC Cloudy(A) Clear Glucose, ur, POC 100.(A) Negative Bilirubin, ur, POC Small(A) Negative Ketones, ur, POC Trace(A) Negative Specific [place], POC 1.015 1.003 - 1.030 Blood, ur, POC Small(A) Negative pH, ur, POC 5.0 5.0 - 8.0 Protein, ur, POC 100.(A) Negative Urobilinogen, urine, POC 4.0(A) 0.2 - 1.0 mg/dL Nitrite, ur, POC Positive(A ) Negative Leukocytes, ur, POC Large(A) Negative Lot Number [id number] Urine 07/10/2024 5:53 PM CDT Mariama Pryor NP POINT OF CARE TEST DES KNUTSON Final Result from Last 3 Months Insurance [facility] [employer] [facility] CIGNA ALLEGIANCE CIGNA ALLEGIANCE Care Teams Traffic Sign Erection Supervisor Relationship Specialty Start Date End Date Shelbi, Nata Alejo NP [address] [place] [address] PCP - General Nurse Practitioner 06/17/22 No, Physician 06/17/22
--- OUTSIDE RECORDS SUMMARY | 2024-07-11 16:39 | XMS_ITS | Clinical Summary ---
Author Organization [facility] Address [address] [address] Phone Care Team Providers Care Insurance Analyst Name Role Phone Unavailable Primary Care Provider Unavailabl e Allergies Active Allergy Reactions Criticality Noted Date Comments Chlorhexidine Rash Low 02/26/2017 Pseudoephedrine Palpitations Low Medications no.[id number] berman (JANITOR CARETAKER-PNV-DHA) 28 mg iron- 1 mg-200 mg Capsule Take one capsule by mouth daily 30 Capsule 12 09/30/2017 10:07 AM CDT 03/12/2017 Active escitalopram oxalate (LEXAPRO) 10 mg tablet Take 20 mg by mouth daily. Active aspirin (ECOTRIN EC) 81 mg Tablet, Delayed Release (E.C.) Take 81 mg by mouth daily. Active docusate sodium (COLACE) 100 mg capsule Take 1 capsule by mouth 2 times daily Until loose stool and then only as needed. 60 Capsule 03/10/2022 10:10 AM MARRIAGE COUNSELOR MINISTER 03/06/2022 Active acetaminophen (TYLENOL) 325 mg tablet Take 2 tablets by mouth every 6 hours as needed for mild pain. 60 Tablet 03/10/2022 10:10 AM MARRIAGE COUNSELOR MINISTER 03/06/2022 Active ibuprofen (MOTRIN) 600 mg tablet Take 1 Tablet (600 mg) by mouth every 6 hours as needed for Pain, Mild. 60 Tablet 03/10/2022 10:10 AM MARRIAGE COUNSELOR MINISTER 03/06/2022 Active NIFEdipine (PROCARDIA XL) 60 mg Extended Release 24 hour tablet Take 1 Tablet (60 mg) by mouth daily. 60 Tablet 03/10/2022 10:10 AM MARRIAGE COUNSELOR MINISTER 03/10/2022 Active Active Problems Problem Noted Date Diagnosed Date Encounter for induction of labor 03/05/2022 NVD F 03/06, PPH Cytotec po, Lovenox for BMI Nausea and vomiting during 02/25/2022 Urinary tract infection in m other during third trimester of 02/02/2022 contractions 02/02/2022 NVD M 8/10/13/2019 NVD, M 07/3007/30/2017 Contact allergic reaction 02/26/2017 Overview (02/26/2017): chloraprep - severe 02/17/2017 NVD f 01/26 Anxiety History of shoulder dystocia in prior , currently Obesity in , antepartum Resolved Problems Problem Noted Date Diagnosed Date Resolved Date Encounter for elective induction of labor 10/13/2019 10/13/2019 Symptomatic cholelithiasis 02/17/2017 1 04/29/2016 Biliary colic 02/17/2017 02/26/2017 Immunizations Immunization Administration Dates Next Due (ADACEL/BOOSTRIX)(10 YR UP) TDAP VACCINE, 0.5ML, IM 02/12/2022,09/22/2019,08/01/2017 (KARLEE) COVID-19 VACCINE - EMERGENCY USE AUTHORIZATION, AD26,COV2S(PF) 0.5 ML IM SUSP 05/08/2020 INFLUENZA VACCINE QUADRIVALE NT 6 MOS UP PF IM 12/14/2019 Influenza Seasonal Unspecifi ed Formulation IM 01/15/2022,10/08/2020 Influenza Vaccine Quad Split (18-64) Pf Id 12/10 Influenza Vaccine Tri Split 4+ Pf Im 03/18/2017 Family History Medical History Relation Name Comments No Known Problems Daughter Unknown Maternal Grandfather Colon Cancer Maternal Grandmother No Known Problems Mother No Known Problems Son 1 Blood Disorder Son 2 spherocytosis Relation Name Status Comments Daughter Alive Maternal Grandfather Maternal Grandmother Mother Alive Son 1 Alive Son 2 Alive Social History Tobacco Use Types Packs/Day Years Used Date Smoking Tobacco: Never Smokeless Tobacco: Never Tobacco Cessation:Counseling Given: Not Answered Alcohol Use Standard Drinks/Week Comments No 0 (1 standard drink = 0.6 oz pur e alcohol) Comments No Sex and Gender Information Value Date Recorded Sex Assigned at Not on file Legal Sex Female 12:17 PM CDT Gender Identity Not on file Sexual Orientation Not on file Last Filed Vital Signs Vital Sign Reading Time Taken Comments Blood Pressure 138/77 03/10/2022 4:29 PM MARRIAGE COUNSELOR MINISTER Pulse 85 03/09/2022 5:01 PM MARRIAGE COUNSELOR MINISTER Temperature 36.7 C (98 F) 03/10/2022 4:29 PM MARRIAGE COUNSELOR MINISTER Respiratory Rate 18 03/10/2022 4:29 PM MARRIAGE COUNSELOR MINISTER Oxygen Saturation 98% 03/09/2022 9:19 PM MARRIAGE COUNSELOR MINISTER Inhaled Oxygen Concentration - - Weight 114.3 kg (252 lb) 03/05/2022 3:33 PM MARRIAGE COUNSELOR MINISTER Height 157.5 cm (5' 2 ) 03/05/2022 3:33 PM MARRIAGE COUNSELOR MINISTER Body Mass Index 46.09 03/05/2022 3:33 PM MARRIAGE COUNSELOR MINISTER Plan of Treatment Health Maintenance Due Date Last Done Comments HEPATITIS B VACCINES (1 of 3 - 19+ 3-dose series) 2011 HPV/Cotest (21-29) 01/06/2022 01/06/2017 HPV/Cotest (30-65) 2022 01/06/2017 CERVICAL CANCER SCREENING 01/11/2023 PAP SMEAR 01/11/2023 01/12/2020, 12/10, 01/06/2017 INFLUENZA VACCINE (#1) 2023 , 10/08/2020, 12/14/2019, Additional history exists COVID-19 Vaccine (2 - season) 2023 05/08/2020 DTAP/TDAP/TD VACCINES (4 - Td or Tdap) 02/13/2032 02/12/2022, 09/22/2019, 08/01/2017 HPV VACCINES Aged Out No longer eligi ble based on patient's age to complete this topic Procedures Procedure Name Priority Date/Time Associated Diagnosis Comments CERV/VAG CYTOPATH, THIN PREP Routine 01/12/2020 from Last 3 Months or Most Recently Relevant to Health Maintenance Results * CERV/VAG CYTOPATH, THIN PREP (01/12/2020) Genital SWAB OF ENDOCERVIX / Unknown us Abstract Provider PATHOLOGY/CYTOLOGY ORDERABLES Edited Result - Final [facility] NOEL# [id number] [address] [address] from Last 3 Months or Most Recently Relevant to Health Maintenance Insurance RX MEDIMPACT Member Subscriber Plan / Payer (Ef fective for All Dates) Name:Namrata Spence Relation to Subscriber:Child Name:Namrata Spence Date of :1990 (Home) Address: [address] [place] [id number] Payer ID:Not on file Group ID:[id number] Type:RX Commercial Address: [place] RX MEDIMPACT Member Subscriber Plan / Payer (Ef fective for All Dates) Name:Namrata Spence Relation to Subscriber:Self Name:Namrata Spence Payer ID:Not on file Group ID:[id number] Type:RX Commercial Address: [place] RX KERR PLANS (INTERNAL) [facility] RX MEDIMPACT Member Subscriber Plan / Payer (Ef fective for All Dates) Name:Namrata Spence Relation to Subscriber:Child Name:Namrata Spence Date of :1990 (Home) Address: [address] [place] [id number] Payer ID:Not on file Group ID:[id number] Type:RX Commercial Address: [place] RX EXPRESS SCR[employer]TS Express RX EXPRESS SCRIPTS Express RX EXPRESS SCRIPTS Express ALLEGIANCE OPEN [place]ESS [place] Advance Directives For more information, please contact: [phone] * Full Code (Latest Code Status on File) Date Activated Date Inactivated Comments 03/06/2022 5:13 AM 03/10/2022 8:53 PM * Full Code Date Activated Date Inactivated Comments 03/05/2022 4:33 PM 03/06/2022 5:12 AM * Full Code Date Activated Date Inactivated Comments 02/25/2022 9:15 AM 02/25/2022 3:52 PM * Full Code Date Activated Date Inactivated Comments 02/02/2022 1:40 AM 02/02/2022 9:06 AM * Full Code Date Activated Date Inactivated Comments 01/26/2021 7:30 AM 01/27/2021 7:03 PM
[2024-07-11 16:40] VITALS: BP 135/81; PULSE 85; RESP 20; TEMP 36.7; O2SAT 100
[2024-07-11 17:23] LABS: Add Urine Microscopic? YES; Appearance Urine Clear (Clear); Bacteria Urine None Seen /hpf; Bilirubin Urine 2+ (Negative); Blood Urine Negative (Negative); Glucose Urine UA Negative (Negative); Ketones Urine Negative (Negative); Leukocyte Esterase Ur 2+ LEU/UL (Negative); Need Manual Microscopic Reviewed; Nitrate Urine Positive (Negative); Non Pathogenic Casts 0-2; Protein Urine 1+ mg/dL (Negative); Specific Grav Ur 1.027 (1.001-1.035); Squamous Epithelial Cell Urine Occasional /hpf (Few); WBC Urine 0-5 /hpf (0-3); pH Urine 5.5 (5.0-9.0)
[2024-07-11] MEDS: HYDROcodone/acetaminophen (*CRX) 5-325 MG TABLET 1 TAB PO (17:31)
[2024-07-11 17:41] LABS: Color Urine Orange (Yellow)
--- OUTSIDE RECORDS SUMMARY | 2024-07-11 17:41 | XMS_ITS | Clinical Summary ---
Author Organization [address] Address [address] [place] [phone] Care Team Providers Care Computer Systems Architect Name Role Phone Shelbi, Nata Alejo NP [...] Description 07/11/2024 12:02 AM CDT [place] [address] Midline low back pain without sciatica, unspecified chronicity 07/11/2024 Telephone [facility] Convenient Care at [address] [place] [phone] Opal Avilez NP 07/10/2024 5:30 PM CDT Office Visit [facility] Medical [facility] Convenient Care at [address] [phone] Mariama Pryor, SRUTHI Midline low back pain [...] on file Legal Sex Female 10:52 AM HOST Gender Identity Not on file Sexual Orientation [...] (07/10/2024 5:53 PM CDT) Color, Urine, POC [place] Clarity, ur, POC Cloudy(A) Clear Glucose, ur, POC 100.(A) Negative Bilirubin, ur, POC Small(A) Negative Ketones, ur, POC Trace(A) Negative Specific [place], POC 1.015 1.003 - 1.030 Blood, ur, POC Small(A) Negative pH, ur, POC 5.0 5.0 - 8.0 Protein, ur, POC 100.(A) Negative Urobilinogen, urine, POC 4.0(A) 0.2 - 1.0 mg/dL Nitrite, ur, POC Positive(A ) Negative Leukocytes, ur, POC Large(A) Negative Lot Number [id number] Urine 07/10/2024 5:53 PM CDT Mariama Pryor NP POINT OF CARE TEST DES KNUTSON Final Result from Last 3 Months Insurance [facility] [email or web address] [facility] CIGNA ALLEGIANCE CIGNA ALLEGIANCE Care Teams Computer Systems Architect Relationship Specialty Start Date End Date Shelbi, Nata Alejo NP [address] [place] [address] PCP - General Nurse Practitioner 06/17/22 No, Physician 06/17/22
--- OUTSIDE RECORDS SUMMARY | 2024-07-11 17:41 | XMS_ITS | Encounter Summary ---
Author Organization [facility] Healthcare Address [address] [place] [address] Care Team Providers Care Metal Annealer Name Role Phone Nata Mario NP Primary Care Provider No, Physician Unavailable Encounter Details Date Type Department Care Team (Late st Contact Info) Description 07/11/2024 Telephone [facility] Medical Group Convenient Care at [address] [place] [phone] Opal Avilez, EMBROIDERY SPECIALIST [address] [place] [address] [address] [address] Social History Tobacco Use Types Packs/Day Years Used Date Smoking Tobacco: Never Smokeless Tobacco: Never Alcohol Use Standard Drinks/Week Comments No 0 (1 standard drink = 0.6 oz pur e alcohol) Comments No Sex and Gender Information Value Date Recorded Sex Assigned at Not on file 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 Please advise. documented in this encounter Plan of Treatment Not on file documented as of this encounter Visit Diagnoses Not on filedocumented in this encounter Care Teams Metal Annealer Relationship Specialty Start Date End Date Mario, Nata Alejo NP [address] [place] [address] PCP - General Nurse Practitioner 06/17/22 No, Physician 06/17/22 documented as of this encounter
--- OUTSIDE RECORDS SUMMARY | 2024-07-11 17:41 | XMS_ITS | Clinical Summary ---
Author Organization [facility] Address [address] [address] Phone Care Team Providers Care Construction Recruiter Name Role Phone Unavailable Primary Care Provider Unavailabl e Allergies Active Allergy Reactions Criticality Noted Date Comments Chlorhexidine Rash Low 02/26/2017 Pseudoephedrine Palpitations Low Medications no.[id number] berman (VALUE ADVISOR-PNV-DHA) 28 mg iron- 1 mg-200 mg Capsule [...] as needed. 60 Capsule 03/10/2022 10:10 AM ASSOCIATE ATTORNEY 03/06/2022 Active acetaminophen (TYLENOL) 325 mg tablet Take 2 tablets by mouth every 6 hours as needed for mild pain. 60 Tablet 03/10/2022 10:10 AM ASSOCIATE ATTORNEY 03/06/2022 Active ibuprofen (MOTRIN) 600 mg tablet Take 1 Tablet (600 mg) by mouth every 6 hours as needed for Pain, Mild. 60 Tablet 03/10/2022 10:10 AM ASSOCIATE ATTORNEY 03/06/2022 Active NIFEdipine (PROCARDIA XL) 60 mg Extended Release 24 hour tablet Take 1 Tablet (60 mg) by mouth daily. 60 Tablet 03/10/2022 10:10 AM ASSOCIATE ATTORNEY 03/10/2022 Active Active Problems Problem Noted Date [...] Comments Blood Pressure 138/77 03/10/2022 4:29 PM ASSOCIATE ATTORNEY Pulse 85 03/09/2022 5:01 PM ASSOCIATE ATTORNEY Temperature 36.7 C (98 F) 03/10/2022 4:29 PM ASSOCIATE ATTORNEY Respiratory Rate 18 03/10/2022 4:29 PM ASSOCIATE ATTORNEY Oxygen Saturation 98% 03/09/2022 9:19 PM ASSOCIATE ATTORNEY Inhaled Oxygen Concentration - - Weight 114.3 kg (252 lb) 03/05/2022 3:33 PM ASSOCIATE ATTORNEY Height 157.5 cm (5' 2 ) 03/05/2022 3:33 PM ASSOCIATE ATTORNEY Body Mass Index 46.09 03/05/2022 3:33 PM ASSOCIATE ATTORNEY Plan of Treatment Health Maintenance Due Date [...] Provider PATHOLOGY/CYTOLOGY ORDERABLES Edited Result - Final [facility]# [id number] [address] [address] from Last 3 Months or Most Recently Relevant to Health Maintenance Insurance RX MEDIMPACT Member Subscriber Plan / Payer (Ef fective for All Dates) Name:Namrata Spence Relation to Subscriber:Child Name:Namrata Spence Date of :1990 (Home) Address: [address] [place] [address] Payer ID:Not on file Group ID:[id number] Type:RX [...] Name:Namrata Spence Date of :1990 (Home) Address: [address] [place] [address] Payer ID:Not on file Group ID:[id number] Type:RX Commercial Address: [place] RX [employer] Express RX EXPRESS S[employer] Express RX EXPRESS S[employer] Express ALLEGIANCE OPEN ACCESS [place] Advance Directives For more information, please contact: [phone] * Full Code (Latest Code Status on [...]
--- OUTSIDE RECORDS SUMMARY | 2024-07-11 17:41 | XMS_ITS | Referral Summary ---
Author Organization [address] Address [address] [place] [id number] Care Team Providers Care Construction Millwright Name Role Phone Nata Mario BELL CLERK Primary Care Provider No, Physician Unavailable Encounters Date Type Department Care Team Description 07/11/2024 Telephone [facility] at [address] [place] [phone] Opal Avilez NP 07/11/2024 12:02 AM CDT Hospital Encounter [address] [address] Midline low back pain without sciatica, unspecified chronicity 07/10/2024 5:30 PM CDT Office Visit [facility] at [address] [place] [address] Mariama Pryor NP Midline low [...] on file Legal Sex Female 10:52 AM 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 Gender Identity Not on file Sexual Orientation [...] (07/10/2024 5:53 PM CDT) Color, Urine, POC [place] Clarity, ur, POC Cloudy(A) Clear Glucose, ur, POC 100.(A) Negative Bilirubin, ur, POC Small(A) Negative Ketones, ur, POC Trace(A) Negative Specific [place], POC 1.015 1.003 - 1.030 Blood, ur, POC Small(A) Negative pH, ur, POC 5.0 5.0 - 8.0 Protein, ur, POC 100.(A) Negative Urobilinogen, urine, POC 4.0(A) 0.2 - 1.0 mg/dL Nitrite, ur, POC Positive(A ) Negative Leukocytes, ur, POC Large(A) Negative Lot Number [id number] Urine 07/10/2024 5:53 PM CDT Mariama Pryor NP POINT OF CARE TEST ORDE RABLES Final Result from Last 3 Months Insurance [facility] ALLEGIANCE [place] [address] [place] [id number] [employer]IG[employer]LE[employer]ANCE [employer] Care Teams Construction Millwright Relationship Specialty Start Date End Date Nata Mario NP [address] [place] [address] PCP - General Nurse Practitioner 06/17/22 No, Physician 06/17/22
--- OUTSIDE RECORDS SUMMARY | 2024-07-11 17:41 | XMS_ITS | Encounter Summary ---
Author Organization [facility] Address [address] [place] [id number] Care Team Providers Care Floor Layer Helper Name Role Phone Nata Mario NP Primary Care Provider No, Physician Unavailable Encounter Details Date Type Department Care Team (Latest Contact Info) Description 07/11/2024 12:02 AM CDT Hospital Encounter 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
--- OUTSIDE RECORDS SUMMARY | 2024-07-11 17:41 | XMS_ITS | Encounter Summary ---
Author Organization [facility] Address [address] [place] [address] Care Team Providers Care Drier Transfer Car Operator Name Role Phone Nata Mario NP Primary Care Provider No, Physician Unavailable Reason for Visit * Reason Comments Back Pain Mid back pain, shoot ing, sharp. Onset: 4 days Patient went to the chiropractor and it didn't help. 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 Gender Identity Not on file Sexual Orientation [...] (07/10/2024 5:53 PM CDT) Color, Urine, POC [place] Clarity, ur, POC Cloudy(A) Clear Glucose, ur, POC 100.(A) Negative Bilirubin, ur, POC Small(A) Negative Ketones, ur, POC Trace(A) Negative Specific [place], POC 1.015 1.003 - 1.030 Blood, ur, POC Small(A) Negative pH, ur, POC 5.0 5.0 - 8.0 Protein, ur, POC 100.(A) Negative Urobilinogen, urine, POC 4.0(A) 0.2 - 1.0 mg/dL Nitrite, ur, POC Positive(A ) Negative Leukocytes, ur, POC Large(A) Negative Lot Number [id number] Urine 07/10/2024 5:53 PM CDT Mariama Pryor [...] days added in this encounter Care Teams Drier Transfer Car Operator Relationship Specialty Start Date End Date Nata Mario NP [address] [place] [address] PCP - General Nurse Practitioner 06/17/22 No, Physician 06/17/22 documented as of this encounter
--- OUTSIDE RECORDS SUMMARY | 2024-07-11 17:41 | XMS_ITS | Clinical Summary ---
Author Organization [facility] Address [facility] [place] [address] Care Team Providers Care Drywall Stripper Helper Name Role Phone Nata Mario APRN-TRANSPLANTER Primary Care Provider [phone] Source Comments [facility],non-owned Affiliates and Associated Physician Practices is amultiple site organization consisting of ambulatory clinics and hospital sitesin [place], [place], [place] and [place]. This disclosure is being madepursuant to the Care Everywhere program and may not contain all information available regarding this patient. 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
--- OUTSIDE RECORDS SUMMARY | 2024-07-11 17:41 | XMS_ITS | Data Portability ---
Author Organization JOSUÉ GUZMANStephanie Malcolm Address [address] [facility] [place] [address] Care Team Providers Care Protein Scientist Name Role Phone ANTA MARTINEZ Primary Care Provider AMANDA MARTINS Staff Accountant Assessment No assessment recorded. Plan of Treatment Reminders Order Date Submit Date Provider Last Modified By Organization Details Last Modified Time Details Appointments ANY 15 2024 10:15A M Nata Martinez, AMBER, HOSPITAL NURSE-C Not available Not available Not available Lab HbA1 c (hem oglo bin A1c) , reuben reeves 2023 024 [facility], [address] [place] [address], [address], 11/25/2023 10:37:26 CMP, seru m or plas ma 2023 024 [facility], [address] [place] [address], [place], [address], 11/25/2023 08:27:12 lipi d madiha silva seru m 2023 024 [facility], [address] [place] [address], [place], [address], 11/25/2023 08:27:12 TSH, ultr a-se nsit hannah seru m 2023 024 [facility], [address] [place] [address], [place], [address], 11/25/2023 10:37:25 CBC 2023 024 [facility], [address] [place] [address], [place], [address], 11/25/2023 08:27:13 adam min D, 25-h ydro xy, tota l, seru m 2023 024 [facility], [address] [place] [address], [place], [address], 11/25/2023 10:37:27 HbA1 c (hem oglo bin A1c) , bloo d 2022 023 [facility], [address] [place] [address], [place], [address], 10/30/2022 06:13:43 CMP, seru m or plas ma 2022 023 [facility], [address] [place] [place] [address], [place], [address], 10/30/2022 03:08:[address] alex martini st refe rral 2024 025 [facility] [address], [place] [address], [place], [address], 06/24/2024 14:32:44 Procedures None shae rded . Surgeries None shae rded . Imaging None shae rded . Medication Orders Wego vy 0.25 mg/0 .5 mL subc utan eous pen inje ctor 2024 025 [id number], [address], [place], [place], [id number], 04/27/2024 11:28:13 phen term ine 15 mg caps ule 2024 025 [id number], [address], [place], [place], [id number], 05/11/2024 14:02:39 esci talo pram 20 mg tabl et 2024 025 [facility], [address], [place], [place], [id number], 04/27/2024 11:28:13 phen term ine 15 mg caps ule 2023 024 [facility]00943, [address], [place], [place], [id number], 05/11/2024 14:01:54 esci talo pram 20 mg tabl et 2023 024 [facility]97272, [address], [place], [place], [id number], 11/24/2023 11:53:38 Wego vy 1.7 mg/0 .75 mL subc utan eous pen inje ctor 2023 024 [facility]31188, [address], [place], [place], [id number], 05/05/2023 09:17:18 Wego vy 0.5 mg/0 .5 mL subc utan eous pen inje ctor 2022 024 [facility]351, [address], [place], [place], [id number], 05/05/2023 09:17:14 Patient TargetsNo targets recorded. Patient Instructions Encounter Date Encounter Id Patient Instructions Last Modified By Organization Details Last Modified Time 10/29/2022 [id number] learning about high blood sugar Not available 10/29/2022 15:59:34 When You Want to Lose Weight: Care Instructions Not available 10/29/2022 15:59:33 Increase activit y level to get exercise most days of the week. Work on eating more fresh fruit, veggies and lean protein and less packaged foods. Not available 10/29/2022 16:06:49 dwp labs needed, plan pending results Not available 10/29/2022 22:33:44 12/02/2022 [id number] sore throat: car e instructions Not available [...] care: none Not available 12/02/2022 16:05:06 03/25/2023 [id number] allergies: care instructions Not available 03/25/2023 17:13:55 [...] care: none Not available 03/25/2023 17:24:48 11/24/2023 [id number] influenza (flu) vaccine: care instructions Not available [...] care: none Not available 11/24/2023 11:54:21 04/27/2024 [id number] A healthy lifestyle: care instructions [facility] Not available 04/27/2024 11:27:51 Increase intake of [...] Not available 04/27/2024 11:29:25 Reason for Referral Chief Investment Officer Referral for Family history of cancer of colon Referring Physician: Nata Martinez, Family Medicine, Encounter Date: 04/27/2024 Results Created Date Observation Date Name Description Value Unit Range Abnormal Flag Note LastModifiedBy Organization Detail LastModifiedTime 10/30/19 23 10/29/2022 COMP. METAB OLIC PANEL (14) glucose 109 mg/dL 70-99 above high normal Not Available [facility] Department [address] [place], [address], 10/30/2022 03:08:48 10/30/19 23 10/29/2022 COMP. METAB OLIC PANEL (14) BUN 13 mg/dL 6-20 Not Available [facility] Department [address] [place], [address], 10/30/2022 03:08:48 10/30/19 23 10/29/2022 COMP. METAB OLIC PANEL (14) creatinine 1.02 mg/dL 0.76-1 .27 Not Available [facility] Department [address] [place], [address], 10/30/2022 03:08:48 10/30/19 23 10/29/2022 COMP. METAB OLIC PANEL (14) eGFR 76 >=60 Units for eGFR value s are mL/mi n/1.7 3 The eGFR Calcu latio n has not been valid ated for patie nts under the age of 18. If test resul ts are displ ayed for a patie nt under the age of 18, disre ezequiel that value . Not Available [facility] Department [address] [place] [address], [address], 10/30/2022 03:08:48 10/30/19 23 10/29/2022 COMP. METAB OLIC PANEL (14) BUN/creatini ne ratio 12 - Not Available [facility] Department [address] [place] [address], [address], 10/30/2022 03:08:48 10/30/19 23 10/29/2022 COMP. METAB OLIC PANEL (14) sodium 142 mmol/ L 134-14 4 Not Available [facility] Department [address] [place] [address], [address], 10/30/2022 03:08:48 10/30/19 23 10/29/2022 COMP. METAB OLIC PANEL (14) potassium 3.9 mmol/ L 3.5-5. 2 Not Available [facility] [address] [place] [address], [address], 10/30/2022 03:08:48 10/30/19 23 10/29/2022 COMP. METAB OLIC PANEL (14) chloride 105 mmol/ L 96-106 Not Available [facility] [address] [place] [address], [address], 10/30/2022 03:08:48 10/30/19 23 10/29/2022 COMP. METAB OLIC PANEL (14) carbon dioxide, total 27 mmol/ L 20-29 Not Available [facility] [address] [place] [address], [address], 10/30/2022 03:08:48 10/30/19 10/29/2022 COMP. METAB OLIC PANEL (14) calcium 9.6 mg/dL 8.7-10 .2 Not Available [facility] Department [address] [place] [address], [address], 10/30/2022 03:08:48 10/30/19 23 10/29/2022 COMP. METAB OLIC PANEL (14) protein, total 7.6 g/dL 6.0-8. 5 Not Available [facility] Department [address] [place] [address], [address], 10/30/2022 03:08:48 10/30/19 23 10/29/2022 COMP. METAB OLIC PANEL (14) albumin 4.5 g/dL 4.0-5. 0 Not Available [facility] Department [address] [place] [address], [address], 10/30/2022 03:08:48 10/30/19 23 10/29/2022 COMP. METAB OLIC PANEL (14) globulin, total 3.1 g/dL 1.5-4. 5 Not Available [facility] Department [address] [place] [address], [address], 10/30/2022 03:08:48 10/30/19 23 10/29/2022 COMP. METAB OLIC PANEL (14) A/G ratio 1.0 1.2-2. 2 below low normal Not Available [facility] Department [address] [place] [address], [address], 10/30/2022 03:08:48 10/30/19 23 10/29/2022 COMP. METAB OLIC PANEL (14) bilirubin, total 0.6 mg/dL 0.0-1. 2 Not Available [facility] Department [address] [place] [address], [address], 10/30/2022 03:08:48 10/30/19 23 10/29/2022 COMP. METAB OLIC PANEL (14) alkaline phosphatase 65 IU/L 44-121 Not Available [facility] Department [address] [place], [address], 10/30/2022 03:08:48 10/30/19 23 10/29/2022 COMP. METAB OLIC PANEL (14) AST (SGOT) 20 IU/L 0-40 Not Available [facility] Department [address] [place], [address], 10/30/2022 03:08:48 10/30/19 23 10/29/2022 COMP. METAB OLIC PANEL (14) ALT (SGPT) 26 IU/L 0-32 Not Available [facility] [address] [place], [address], 10/30/2022 03:08:48 10/30/19 23 10/30/2022 HEMOG LOBIN A1C hemoglobin A1C 5.2 % 4.8-5. 6 Predi abete s: 5.7 - 6.4 Diabe ana: >6.4 Glyce kathryn contr ol for adult s with diabe ana: <7.0 Not Available [facility] ([facility]) [address] [place], [address], 10/30/2022 06:13:43 11/24/19 24 11/25/2023 LIPID PANEL cholesterol, total 168 mg/dL 100-19 9 Not Available [facility] ([facility]) [address] [place], [address], 11/25/2023 08:27:11 11/24/19 24 11/25/2023 LIPID PANEL triglyceride s 191 mg/dL 0-149 above high normal Not Available [facility] ([facility]) [address] [place], [address], 11/25/2023 08:27:11 11/24/19 24 11/25/2023 LIPID PANEL HDL cholesterol 45 mg/dL >39 Not Available [facility]) [address] [place], [address], 11/25/2023 08:27:11 11/24/19 24 11/25/2023 LIPID PANEL VLDL cholesterol fareed 33 mg/dL 5-40 Not Available [facility]) [address] [facility], [place], [address], 11/25/2023 08:27:11 11/24/19 24 11/25/2023 LIPID PANEL LDL chol calc ([facility]) 90 mg/dL 0-99 Not Available [facility]) [address] [place], [address], 11/25/2023 08:27:11 11/24/19 24 11/25/2023 COMP. METAB OLIC PANEL (14) glucose 60 mg/dL 70-99 below low normal Not Available [facility] ([facility]) [address] [place], [address], 11/25/2023 08:27:12 11/24/19 24 11/25/2023 COMP. METAB OLIC PANEL (14) BUN 9 mg/dL 6-20 Not Available [facility] ([facility]) [address] [place], [address], 11/25/2023 08:27:12 11/24/19 24 11/25/2023 COMP. METAB OLIC PANEL (14) creatinine 0.81 mg/dL 0.57-1 .00 Not Available [facility] ([facility]) [address] [place], [address], 11/25/2023 08:27:12 11/24/19 24 11/25/2023 COMP. METAB OLIC PANEL (14) eGFR 99 mL/mi n/1.7 3 >59 Not Available [facility] ([facility]) [address] [place], [address], 11/25/2023 08:27:12 11/24/19 24 11/25/2023 COMP. METAB OLIC PANEL (14) BUN/creatini ne ratio 11 9-23 Not Available [facility] ([facility]) [address] [facility] [place], [address], 11/25/2023 08:27:12 11/24/19 24 11/25/2023 COMP. METAB OLIC PANEL (14) sodium 141 mmol/ L 134-14 4 Not Available [facility] ([facility]) [address] [facility] [place], [address], 11/25/2023 08:27:12 11/24/19 24 11/25/2023 COMP. METAB OLIC PANEL (14) potassium 4.1 mmol/ L 3.5-5. 2 Not Available [facility] ([facility]) [address] [facility] [place], [address], 11/25/2023 08:27:12 11/24/19 24 11/25/2023 COMP. METAB OLIC PANEL (14) chloride 101 mmol/ L 96-106 Not Available [facility] ([facility]) [address] [place], [address], 11/25/2023 08:27:12 11/24/19 24 11/25/2023 COMP. METAB OLIC PANEL (14) carbon dioxide, total 27 mmol/ L 20-29 Not Available [facility] ([facility]) [address] [facility] [place], [address], 11/25/2023 08:27:12 11/24/19 24 11/25/2023 COMP. METAB OLIC PANEL (14) calcium 9.2 mg/dL 8.7-10 .2 Not Available [facility] ([facility]) [address] [facility] [place], [address], 11/25/2023 08:27:12 11/24/19 24 11/25/2023 COMP. METAB OLIC PANEL (14) protein, total 7.0 g/dL 6.0-8. 5 Not Available [facility] ([facility]) [address] [facility], [place], [address], 11/25/2023 08:27:12 11/24/19 24 11/25/2023 COMP. METAB OLIC PANEL (14) albumin 4.3 g/dL 3.9-4. 9 Not Available [facility] ([facility]) [address] [place], [address], 11/25/2023 08:27:12 11/24/19 24 11/25/2023 COMP. METAB OLIC PANEL (14) globulin, total 2.7 g/dL 1.5-4. 5 Not Available [facility] ([facility]) [address] [facility] [place], [address], 11/25/2023 08:27:12 11/24/19 24 11/25/2023 COMP. METAB OLIC PANEL (14) bilirubin, total 0.7 mg/dL 0.0-1. 2 Not Available [facility] ([facility]) [address] [facility], [place], [address], 11/25/2023 08:27:12 11/24/19 24 11/25/2023 COMP. METAB OLIC PANEL (14) alkaline phosphatase 62 IU/L 44-121 Not Available [facility] ([facility]) [address] [facility] [place], [address], 11/25/2023 08:27:12 11/24/19 24 11/25/2023 COMP. METAB OLIC PANEL (14) AST (SGOT) 20 IU/L 0-40 Not Available [facility] ([place] [facility]) [address] [facility] [place], [address], 11/25/2023 08:27:12 11/24/19 24 11/25/2023 COMP. METAB OLIC PANEL (14) ALT (SGPT) 15 IU/L 0-32 Not Available [facility] ([place] [facility]) [address] [facility] [place], [address], 11/25/2023 08:27:12 11/24/19 24 11/24/2023 CBC, PLATE LET, NO DIFFE RENTI AL WBC 5.5 x10e3 /uL 3.4-10 .8 Not Available [facility] ([facility]) [address] [facility], [place], [address], 11/25/2023 08:27:13 11/24/19 24 11/24/2023 CBC, PLATE LET, NO DIFFE RENTI AL RBC 4.59 x10e6 /uL 3.77-5 .28 Not Available [facility] ([facility]) [address] [facility], [place], [address], 11/25/2023 08:27:13 11/24/1911/24/2023 CBC, PLATE LET, NO DIFFE RENTI AL hemoglobin 13.6 g/dL 11.1-1 5.9 Not Available [facility] ([facility]) [address] [facility], [place], [address], 11/25/2023 08:27:13 11/24/1911/24/2023 CBC, PLATE LET, NO DIFFE RENTI AL hematocrit 42.4 % 34.0-4 6.6 Not Available [facility] ([facility]) [address] [facility], [place], [address], 11/25/2023 08:27:13 11/24/1911/24/2023 CBC, PLATE LET, NO DIFFE RENTI AL MCV 92 fL 79-97 Not Available [facility] ([facility]) [address] [facility], [place], [address], 11/25/2023 08:27:13 11/24/1911/24/2023 CBC, PLATE LET, NO DIFFE RENTI AL MCH 29.6 pg 26.6-3 3.0 Not Available [facility] ([facility]) [address] [facility], [place], [address], 11/25/2023 08:27:13 11/24/19 24 11/24/2023 CBC, PLATE LET, NO DIFFE RENTI AL MCHC 32.1 g/dL 31.5-3 5.7 Not Available [facility] ([facility]) [address] [place], [address], 11/25/2023 08:27:13 11/24/19 24 11/24/2023 CBC, PLATE LET, NO DIFFE RENTI AL RDW 12.0 % 11.7-1 5.4 Not Available [facility] ([facility]) [address] [place], [address], 11/25/2023 08:27:13 11/24/19 24 11/24/2023 CBC, PLATE LET, NO DIFFE RENTI AL platelets 284 x10e3 /uL 150-45 0 Not Available [facility] ([facility]) [address] [place], [address], 11/25/2023 08:27:13 11/24/19 24 11/25/2023 TSH RFX ON ABNOR MAL TO FREE T4 TSH 3.930 uIU/m L 0.450- 4.500 Not Available [facility] ([facility]) [address] [place], [address], 11/25/2023 10:37:25 11/24/19 24 11/25/2023 HEMOG LOBIN A1C hemoglobin A1C 4.9 % 4.8-5. 6 Predi abete s: 5.7 - 6.4 Diabe ana: >6.4 Glyce kathryn contr ol for adult s with diabe ana: <7.0 Not Available [facility] ([facility]) [address] [place], [address], 11/25/2023 10:37:26 11/24/19 24 11/25/2023 VITAM IN [...] um and D. Aditya temple [place]: [facility] . 2. Clarissa westfall MF, Madi luong [place], Soni off-F augie i COLLIER, et al. Evalu ation , treat ment, and preve ntion of vitam in D defic iency : an Endoc rine Socie ty clini fareed pract ice guide line. JCEM. 2010; 96(7) :1911 -30. Not Available [facility] ([facility]) [address] [facility], [place], [address], 11/25/2023 10:37:27 01/29/20 24 01/29/2024 SARS- CoV+S ARS-C oV-2 (COVI D-19) Ag [Pres ence] in Respi rator y syste m speci men by Rapid immun oassa y influenza A Ag, POC Negati ve text: negati ve Influ hood A Ag, POC Negat hannah Negat hannah [facility] Not Available Not Available 04/27/2024 03:12:07 01/29/20 24 01/29/2024 SARS- CoV+S ARS-C oV-2 (COVI D-19) Ag [Pres ence] in Respi rator y syste m speci men by Rapid immun oassa y influenza B Ag, POC Negati ve text: negati ve Influ hood B Ag, POC Negat hannah Negat hannah [facility] Not Available Not Available 04/27/2024 [...] Address Organization Details Recorded Time Morbid obesity 570738333 Active 2021 Nata Martinez APN, FNP-C Attn: Rowdy [address]oney,[address] [place], [address], [facility] 2 14:15:08 Allergic rhinitis 40139027 Active 2021 Nata Martinez APN, FNP-C Attn: Rowdy toney,[address] [place], [address], [place] - [facility] 2 14:33:08 Mixed anxiety and depressive disorder 260299679 Active 2021 Nata Martinez APN, FNP-C Attn: Rowdy toney,[address] [place], [address], [place] [facility] 2 14:33:09 Pain of bilateral hands 5165671194959 9109 Active 2021 Nata Martinez APN, FNP-C Attn: Rowdy toney,[address] [place], [address], [place] - [facility] 2 21:57:36 Obesity 893476670 Active 2022 Nata Martinez, ACCOUNTING MANAGER, HOSPITAL NURSE-C Attn: Accountin g,[address] [facility], [place], [address], [place] - [facility] 3 09:53:33 Vitamin D deficiency 86650581 Active 2022 Nata Martinez APN, HOSPITAL NURSE-C Attn: Accountin g,[address] [facility], [place], [address], [place] - [facility] 3 10:03:06 Uric acid level above reference range 86064682 Active 2022 Nata Martinez APN, HOSPITAL NURSE-C Attn: Accountin g,[address] [facility], [place], [address], [facility] - [facility] 3 10:03:08 Hyperglycem ia 91888044 Active 2022 Natastevo Martinez APN, HOSPITAL NURSE-C Attn: Rowdy g,[address] [facility], [place], [address], [place] - [facility] 3 15:59:37 Problem Notes None recorded. Procedures Surgical History Date Name Laterality Status Provider Name and Address Organization Details Recorded Time 11/13/19 23 Tonsillectomy completed Dominique Mccollum [place] - [facility] 12/02/2022 15:37:27 04/05/19 23 Tubal Ligation completed Dominique Mccollum [facility] 04/11/2022 09:49:55 03/10/19 20 Cholecystectomy completed Dominique Mccollum [place] - [facility] 06/22/2021 14:05:39 Removal of adenoids completed Dominique Mccollum ND - [facility] 06/22/2021 14:05:08 Imaging Results None recorded. Procedure Notes None recorded. Medical Equipment None Reported. Allergies Allergen ID Allergen Name Allergen Category Reaction Reaction Severity Criticality Documentation Date Start Date Code Code System Note Provider Name and Address Organization Details Recorded Time 511603 Sudafed medicatio n palpitati ons moderate Not available 06/22/202192788 2 RxNorm Dominique willard [place] - [facility] 2 14:00:05 809819 chlorhexi dine medicatio n hives Not available Not available 06/22/2021 3238 RxNorm Dominique Mccollum null, [place] - [facility] [...] Not Available Not Available No t Available [employer]-PNV-DHA 28 mg iron-1 mg-200 mg capsule 06/22 [...] Updated DateTime 3 157.48 cm 43.9 kg/m2 251475. 17 g 95 % 95 % 70 [...] Updated DateTime 3 157.48 cm 41.7 kg/m2 503961. 06 g 95 % 95 % 88 /min 16 /min 98 [degF] 114 mm[Hg] 80 mm[Hg] Dominique Mccollum [facility] 3 15:38:33 Date Recorded Body height Body mass index (BMI) Body weight Oxygen saturation Oxygen saturation in Arterial blood by Pulse oximetry Heart rate Respiratory rate Body temperature Systolic blood pressure Diastolic blood pressure Provider Name and Address Organization Details Last Updated DateTime 4 157.48 cm 39.5 kg/m2 20033.5 9 g 99 % 99 % 87 /min 14 /min 97.3 [degF] 133 mm[Hg] 78 mm[Hg] Hannah Hermosillo MA [facility] 4 17:00:48 Date Recorded Body height Body mass index (BMI) Body weight Oxygen saturation Oxygen saturation in Arterial blood by Pulse oximetry Respiratory rate Body temperature Heart rate Systolic blood pressure Diastolic blood pressure Provider Name and Address Organization Details Last Updated DateTime 4 157.48 cm 32.6 kg/m2 36680.4 4 g 98 % 98 % 16 /min 97.5 [degF] 82 /min 126 mm[Hg] 88 mm[Hg] Dominique Mccollum [facility] 4 11:21:07 Date Recorded Body height Body mass index (BMI) Body weight Oxygen saturation Oxygen saturation in Arterial blood by Pulse oximetry Respiratory rate Body temperature Heart rate Systolic blood pressure Diastolic blood pressure Provider Name and Address Organization Details Last Updated DateTime 5 157.48 cm 35.3 kg/m2 59260.3 3 g 98 % 98 % 16 /min 97.3 [degF] 72 /min 128 mm[Hg] 84 mm[Hg] Dominique Mccollum Octavio [facility] 5 11:17:56 Social History Question Answer Notes LastModified by Organization Details LastModified Time Tobacco Smoking Status Never Smoker Dominique willard [facility] 06/22/2021 14:03:25 What Is Your Level Of Alcohol Consumption? Occasional [email or web address] Information not available 06/22/2021 Are You Blind Or Do You Have Difficulty Seeing? No Night Driving Glass Information not available 03/25/2023 What Is Your Level Of Caffeine Consumption? Moderate Information not available 03/25/2023 In The 14 Days Before Symptom Onset, Have You Had Close Contact With A Laboratory-confi rmed COVID-19 While That Case Was Ill? No [email or web address] Information not available 06/22/2021 In The 14 Days Before Symptom Onset, Have You Had Close Contact With A Person Who Is Under Investigation For COVID-19 While That Person Was Ill? No Information not available 06/22/2021 Have You Been To An Area Known To Be High Risk For COVID-19? No [email or web address] Information not available 06/22/2021 Are You Currently Employed? No [email or web address] Information not available 10/29/2022 Are You Deaf Or Do You Have Serious Difficulty Hearing? No [email or web address] Information not available 06/22/2021 What Type Of Diet Are You Following? 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 Yes [email or web address] Information not available 06/22/2021 What Was The Date Of Your Most Recent Tobacco Screening? 04/27/2024 Information not available 04/27/2024 How Many Children Do You Have? 4 [email or web address] Information not available 10/29/2022 What Is Your Relationship Status? Information not available 06/22/2021 Do You Use Your Seat Belt Or Car Seat Routinely? Yes [email or web address] Information not available 06/22/2021 Are You Sexually Active? Yes [email or web address] Information not available 06/22/2021 Do You Have Smoke And Carbon Monoxide Detectors In Your Home? Yes [email or web address] Information not available 06/22/2021 Are You Passively Exposed To Smoke? No [email or web address] Information not available 06/22/2021 Do You Feel Stressed (tense, Restless, Nervous, Or Anxious, Or Unable To Sleep At Night)? [id number] [email or web address] Information not available 10/29/2022 Do You Use Any Illicit Or Recreational Drugs? No [email or web address] Information not available 06/22/2021 Do You Use Sunscreen Routinely? No [email or web address] Information not available 06/22/2021 Has Tobacco Cessation Counseling Been Provided? No [email or web address] Information not available 04/11/2022 Do You Or Have You Ever Used Any Other Forms Of Tobacco Or Nicotine? No Information not available 06/22/2021 Sex: Female Functional Status Question Answer Note LastModified by Organization D etails LastModified Time Are you able to care for yourself? Yes [email or web address] Information not available 06/22/2021 What is your exercise level? Moderate Information not available 04/27/2024 Mental Status None recorded. Family History Relationship Description Onset Age of this Age Resolved Age Notes LastModified by Organization Details LastModified Time Maternal Grandmother Malignant tumor of colon [email or web address] Not available 06/22 14:02:16 Paternal Grandmother Malignant tumor of colon [email or web address] Not available 06/22 14:02:21 Maternal Aunt Malignant tumor of breast [email or web address] Not available 06/22 14:02:31 Maternal Aunt Malignant tumor of thyroid gland [email or web address] Not available 06/22 14:02:46 Maternal Aunt Diabetes mellitus [email or web address] Not available 06/22 14:03:03 Maternal Aunt Malignant tumor of breast [id number] Not available 04/11 09:49:01 Father No current problems or disability Not available 06/22 14:13:42 Mother No current problems or disability Not available 06/22 14:13:42 Mother Diabetes mellitus [id number] Not available 04/11 09:49:11 Notes:4/5 aunts have thyroid s disorders Medical History Condition Response Coronary Artery Disease N Atrial Fibrillation N High Blood Pressure N Thyroid Problems N Kidney or Bladder Problems N GI Problems N Depression Y COPD N Blood Clots N Eating Disorder N Skin Problems N Anemia N Heart Attack (OK) N Diabetes N Anxiety Disorder Y Muscle, [...] Hib, unspecified formulation 3 completed Nata Martinez ACCOUNTING MANAGER, HOSPITAL NURSE-C Attn: Accounting,[address] [place], [place], [address] [place] [address], [facility] 04/11/2022 09:54:23 Hib, unspecified formulation 4 completed Nata Martinez ACCOUNTING MANAGER, HOSPITAL NURSE-C Attn: Accounting,[address] [place], [place], [address] [place] [address], [facility] 04/11/2022 09:54:23 Hib, unspecified formulation 3 completed Nata Martinez ACCOUNTING MANAGER, HOSPITAL NURSE-C Attn: Accounting,[address] [place], [place], [address] [place] [address], [facility] 04/11/2022 09:54:23 Hib, unspecified formulation 3 completed Nata Martinez ACCOUNTING MANAGER, HOSPITAL NURSE-C Attn: Accounting,[address] [place], [place], [address] [place] [address] - [facility] 04/11/2022 09:54:23 IPV 3 completed Nata Martinez ACCOUNTING MANAGER, HOSPITAL NURSE-C Attn: Accounting,[address] [place], [place], [address] [place] [address], [facility] 04/11/2022 09:54:23 IPV 3 completed Nata Martinez ACCOUNTING MANAGER, HOSPITAL NURSE-C Attn: Accounting,[address] [place], [place], [address] [place] [address], [facility] 04/11/2022 09:54:23 IPV 8 completed Nata Martinez ACCOUNTING MANAGER, HOSPITAL NURSE-C Attn: Accounting,[address] [place], [place], [address] [place] [address], [facility] - [facility] 04/11/2022 09:54:23 Influenza, MDCK, quadrivalent, PF 2 completed Nata Martinez, ACCOUNTING MANAGER, HOSPITAL NURSE-C Attn: Accounting,[address] [facility], [place], [place], [address] [place] [address], [facility] [place] 04/11/2022 09:54:23 Influenza, MDCK, quadrivalent, preservative 9 completed Nata Martinez, ACCOUNTING MANAGER, HOSPITAL NURSE-C Attn: Accounting,[address] [facility], [place], [place], [address] [place] [address], [facility] 04/11/2022 09:54:23 Influenza, live, trivalent, intranasal 1 completed Nata Martinez ACCOUNTING MANAGER, HOSPITAL NURSE-C Attn: Accounting,[address] [facility], [place], [place], [address] [place] [address] 04/11/2022 09:54:23 MMR 4 completed Nata Martinez, ACCOUNTING MANAGER, HOSPITAL NURSE-C Attn: Accounting,[address] [facility], [place], [place], [address] [place] [address] 04/11/2022 09:54:23 MMR 8 completed Nata Martinez ACCOUNTING MANAGER, HOSPITAL NURSE-C Attn: Accounting,[address] [facility], [place], [place], [address] [place] [address] 04/11/2022 09:54:23 COVID-19 vaccine, vector-nr, rS-Ad26, PF, 0.5 mL 1 completed Nata Martinez, ACCOUNTING MANAGER, HOSPITAL NURSE-C Attn: Accounting,[address] [facility], [place], [place], [address] [place] [address] [facility] 04/11/2022 09:54:23 Tdap 5 completed Nata Martinez, ACCOUNTING MANAGER, HOSPITAL NURSE-C Attn: Accounting,[address] [place], [address] [place] [address] SI 04/11/2022 09:54:23 HPV, unspecified formulation 2 completed Nata Martinez, ACCOUNTING MANAGER, HOSPITAL NURSE-C Attn: Accounting,[address] [facility], [place], [address], [facility] - [facility] 04/11/2022 09:54:23 HPV, unspecified formulation 1 completed Nata Martinez, ACCOUNTING MANAGER, HOSPITAL NURSE-C Attn: Accounting,[address] [facility], [place], [address], [facility] - [facility] 04/11/2022 09:54:23 Influenza, split virus, trivalent, preservative 1 completed Nata Martinez, ACCOUNTING MANAGER, HOSPITAL NURSE-C Attn: Accounting,[address] [facility], [place], [address], [facility] 04/11/2022 09:54:23 HPV, quadrivalent 1 completed Nata Martinez, ACCOUNTING MANAGER, HOSPITAL NURSE-C Attn: Accounting,[address] [facility], [place], [address], [facility] - [facility] 04/11/2022 09:54:23 Hep B, adolescent or pediatric 3 completed Nata Martinez, ACCOUNTING MANAGER, HOSPITAL NURSE-C Attn: Accounting,[address] [facility], [place], [address], [facility] 04/11/2022 09:54:23 Hep B, adolescent or pediatric 3 completed Nata Martinez, ACCOUNTING MANAGER, HOSPITAL NURSE-C Attn: Accounting,[address] [facility], [place], [address], [facility] 04/11/2022 09:54:23 Hep B, adolescent or pediatric 3 completed Nata Martinez, ACCOUNTING MANAGER, HOSPITAL NURSE-C Attn: Accounting,[address] [facility], [place], [address], [facility] 04/11/2022 09:54:23 Hep A, ped/adol, 2 dose 2 completed Nata Martinez, ACCOUNTING MANAGER, HOSPITAL NURSE-C Attn: Accounting,[address] [facility], [place], [address], [facility] 04/11/2022 09:54:23 Hep A, pediatric, unspecified formulation 1 completed Nata Martinez, ACCOUNTING MANAGER, HOSPITAL NURSE-C Attn: Accounting,[address] [facility], [place], [address] [place] [address], [facility] 04/11/2022 09:54:23 meningococcal C conjugate 1 completed Nata Martinez, ACCOUNTING MANAGER, HOSPITAL NURSE-C Attn: Accounting,[address] [facility], [place], [place], [address] [place] [address], [facility] 04/11/2022 09:54:23 DTaP 3 completed Nata Martinez, ACCOUNTING MANAGER, HOSPITAL NURSE-C Attn: Accounting,[address] [facility], [place], [address] [place] [address], [facility] 04/11/2022 09:54:24 DTaP 3 completed Nata Martinez, ACCOUNTING MANAGER, HOSPITAL NURSE-C Attn: Accounting,[address] [facility], [place], [address] [place] [address], [facility] 04/11/2022 09:54:24 DTaP 8 completed Nata Martinez, ACCOUNTING MANAGER, HOSPITAL NURSE-C Attn: Accounting,[address] [facility], [place], [address] [place] [address], [facility] 04/11/2022 09:54:24 DTaP 4 completed Nata Martinez, ACCOUNTING MANAGER, HOSPITAL NURSE-C Attn: Accounting,[address] [facility], [place], [address] [place] [address], [facility] 04/11/2022 09:54:24 DTaP 3 completed Nata Martinez, ACCOUNTING MANAGER, HOSPITAL NURSE-C Attn: Accounting,[address] [facility], [place], [address] [place] [address], [facility] 04/11/2022 09:54:24 Influenza, split virus, quadrivalent, PF 0 completed Nata Martinez, ACCOUNTING MANAGER, HOSPITAL NURSE-C Attn: Accounting,[address] [facility], [place], [address] [place] [address], [facility] 04/11/2022 09:54:24 Influenza, split virus, quadrivalent, PF 8 completed Nata Martinez APN, HOSPITAL NURSE-C Attn: Accounting,[address] [facility], [place], [address], [place] [facility] 04/11/2022 09:54:24 Tdap 2 completed Hannah Hermos[place], [place] [facility] 03/25/2023 16:57:39 Influenza, split virus, trivalent, PF 4 completed ULCY Milligan [place], [place] [facility] 11/24/2023 12:07:00 Past Encounters Encounter ID Performer Location Encounter Start Date Encounter Closed Date Diagnosis/Indication Diagnosis SNOMED-CT Code Diagnosis ICD10 Code Diagnosis Note [id number] MD Cindi Ferrera (Adult Med) [address] [place] [address] 06/22/2021 13:48:05 06/25/2021 12:47:27 Adult health examination 990686433 Z00.01 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 Morbid obesity 684115209 E66.01 advised low fat, low cholestero l diet, regular exercise and weight reduction. 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 Obesity 134688058 E66.9 advised low fat, low cholestero l diet, regular exercise and weight reduction. Mixed anxi ety and depressive disorder 721792261 F41.8 stable on lexapro 10 mg Uric acid level above reference range 34434584 E79.0 Vitamin D deficiency 347 32452 E55.9 Family his tory of hereditary disease 605442826 Z84.81 two children have hereditary spherocyto sis, may want to see genetics [id number] MD Cindi Ferrera (Adult Med) [address] [place] [address] 10/29/2022 15:28:05 10/30/2022 09:33:56 Obesity 172803843 E66.9 advised low fat, low cholestero l diet, regular exercise and weight reduction. Hyperglycemia 58945315 R 73.9 will check labs [id number] MD Cindi Ferrera (Adult Med) [address] [place] [address] 12/02/2022 15:26:52 12/04/2022 11:56:58 Obesity 552422795 E66.9 advised low fat, low cholestero l diet, regular exercise and weight reduction. Pain in throat 903244467 R07.0 healing from recent tonsillect ailyn [id number] MD Cindi Ferrera (Adult Med) [address] [place] [address] 03/25/2023 16:36:50 04/03/2023 10:40:44 Obesity 939131468 E66.9 advised low fat, low cholestero l diet, regular exercise and weight reduction. Hyperglycemia 75938093 R 73.9 will check lab, cont glp1 Vitamin D deficiency 347 13641 E55.9 check labcont supplement Mixed anxi ety and depressive disorder 233869774 F41.8 stable on lexapro 10 mg Allergic rhinitis 294661 04 J30.9 start flonase, zyrtec [id number] MD Cindi Ferrera (Adult Med) [address] [place] [address] 11/24/2023 10:55:01 11/26/2023 11:27:39 Obesity 796020915 E66.9 advised low fat, low cholestero l diet, regular exercise and weight reduction. ok to cont phentermin e, is taking eod Mixed anxi ety and depressive disorder 712097642 F41.8 stable on lexapro 10 mgdenies SI HI or SE Administra tion of influenza vaccine 35565684 Z23 [id number] MD Cindi Ferrera (Adult Med) [address] [place] [address] 04/27/2024 10:58:03 04/28/2024 11:05:18 Obesity 276487350 E66.9 advised low fat, low cholestero l diet, regular exercise and weight reduction. ok to cont phentermin e, is taking eodpt did better on Wegovy, will send rx Family his tory of cancer of colon 429699147 Z80.0 grandma CA and mother polyps with yearly scopes to check;will send to GI Mixed anxi ety and depressive disorder 343659624 F41.8 stable on lexapro 20 mgdenies SI HI or SE Health Concerns Section Related Observation LastModified by Organization Detai ls LastModified Time None Recorded Concern Status LastModified by Organization Details LastModified Time None Recorded Advance Directives Directive None Recorded Payers Encounter Date Sequence Insurance Name Policy Number Policy Lares Covered Member ID Lares Member ID Guarantor Name 10/29/2022 1 [facility] [id number] Luis Miguel Spence [id number] Namrata Spence 12/02/2022 1 [facility] - [employer] [id number] Luis Miguel Spence [id number] Namrata Spence 03/25/2023 1 [facility] - [employer] [id number] Luis Miguel Spence [id number] Namrata Spence 11/24/2023 1 [employer] - [employer] [id number] Luis Miguel Spence [id number] Namrata Spence 04/27/2024 1 [employer] - [employer] [id number] Luis Miguel Spence [id number] Namrata Spence Notes Date Note Type Note Provider Name and Address Organization Details Recorded Time 10/29/2022 text/html discuss weight l oss options. Mom currently uses ozempic but she is diabetic. Pt is pre-diabetic. states she is very active and tries to watch what she eats. pt thinks ozempic will help with her blood sugar well Nata Martinez APN, HOSPITAL NURSE-C Attn: Accounting,[address] [facility], [place], [address], [place] [facility] 10/29/2022 22:34:17 12/02/2022 text/html [...] 2 weeks after surgery she went to [facility] outpatient center and tested positive strep again.- given abx and finished. States her throat still hurts but may be because of the surgery Nata Martinez APN, HOSPITAL NURSE-C Attn: Accounting,[address] [facility], [place], [address], [place] [facility] 12/02/2022 16:06:11 03/25/2023 text/html [...] 2 weeks after surgery she went to [facility] outpatient center and tested positive strep again.- given abx and finished. States her throat still hurts but may be because of the surgery 03/25/22:rx out of stock, xmas harder to follow diet; Nata Martinez APN, HOSPITAL NURSE-C Attn: Accounting,[address] [facility], [place], [address], [place] [facility] 04/02/2023 21:36:29 11/24/2023 text/html [...] 2 weeks after surgery she went to [facility] outpatient center and tested positive strep again.- given abx and finished. States her throat still hurts but may be because of the surgery 03/25/22:rx out of stock, xmas harder to follow diet; 11/24/23:feels better, taking phentermine eod and that seems to work ok for her, also running, mood improved in spite of life stress right now Nata Martinez APN, HOSPITAL NURSE-C Attn: Accounting,[address] [place], [address], [facility] 11/24/2023 11:57:37 04/27/2024 text/html here for follow up on weight loss, would like to go back on Wegovy if possible mood- stable, feels good on current dose, denies SI or HI, sleep is good Nata Martinez APN, HOSPITAL NURSE-C Attn: Accounting,[address] [place], [address], [facility] 04/27/2024 14:20:25 OBGyn Episode No OBEpisode recorded.
--- NOTE | 2024-07-11 17:58 | ED.BACK ---
HPI - Back Pain/Injury General Chief Complaint: Urogenital-Female Stated Complaint: back pain Time Seen by Provider: 07/11/24 17:00 Source: patient Mode of arrival: ambulatory Limitations: no limitations History of Present Illness HPI Narrative: Patient is a 34-year-old female who presents the ED with report of right flank pain. Patient reports she has been having pain throughout her right flank region for the past few days. Thought she may have strained a muscle. She went to an urgent care yesterday and was diagnosed with a urinary tract infection. Started on Keflex. Has been taking as as prescribed, but denies improvement of pain. Has been taking ibuprofen without improvement. Denies significant radiation to abdomen. Pain worse with movement/deep breathing. She has also noticed a small amount of blood in her urine. Denies nausea, vomiting, fevers, dysuria, hematuria. No previous history of kidney stones. Related Data Home Medications ?Medication ?Instructions ?Recorded ?Confirmed ?Last Taken ?Type escitalopram oxalate 10 mg tablet 10 mg PO DIRECTED 06/10/22 06/10/22 Unknown History Allergies Allergy/AdvReac Type Severity Reaction Status Date / Time chlorhexidine Allergy Intermediate Rash Verified 07/11/24 18:45 Review of Systems Review of Systems: All systems reviewed & are unremarkable except as noted in HPI. All systems reviewed & are unremarkable except as noted in HPI and below PMFSH Past Medical History Medical History COVID-28 March 2021 Anxiety and depression Surgical History Surgical History [place] teeth extracted Hx of cholecystectomy History of bunionectomy of both great toes History of adenoidectomy Social History Social History Smoking status: Never smoker Alcohol intake: current Alcohol use details: rare social Substance use: never Living arrangements: with family Gender identity (if verbalized by the patient): Female Exam Narrative: GENERAL: Mildly uncomfortable appearing, obese with BMI of 34.2, non-toxic, in no acute distress. HEAD: Normocephalic, atraumatic. RESPIRATORY: Airway patent, respirations nonlabored. Clear to auscultation bilaterally, no rales, rhonchi, wheezing. CARDIOVASCULAR: Regular rate and rhythm without murmurs, rubs, or gallops. ABDOMINAL: Soft, no significant tenderness throughout abdomen, nondistended. Normoactive BS. MUSCULOSKELETAL: Moves all extremities. No gross deformities. Tenderness to palpation throughout right mid/lower thoracic region, along right lower ribcage. No palpable bony deformities. No midline spinal tenderness. SKIN: Warm, dry, normal color. NEURO: A&O X3. Speech clear. No ataxic movements. PSYCHIATRIC: Appropriate mood and affect. Normal interaction. Course Vital Signs Vital signs: Vital Signs Temperature 98.1 F 07/11/24 16:40 Pulse Rate 85 07/11/24 16:40 Respiratory Rate 20 07/11/24 16:40 Blood Pressure 135/81 07/11/24 16:40 Pulse Oximetry 100 07/11/24 16:40 Oxygen Delivery Room Air 07/11/24 16:40 Temperature 98.1 F 07/11/24 16:40 Pulse Rate 77 07/11/24 18:32 Respiratory Rate 16 07/11/24 18:32 Blood Pressure 113/74 07/11/24 18:32 Pulse Oximetry 99 07/11/24 18:32 Oxygen Delivery Room Air 07/11/24 16:40 MDM - Back Pain/Injury MDM Narrative Medical decision making narrative: Patient presented to ED with right-sided back/flank pain, recent diagnosis of UTI. Currently on Keflex. Has been taking this as prescribed. Vital signs are stable upon arrival. Patient mildly uncomfortable appearing, but not in acute distress. Basic laboratory studies are unremarkable. No leukocytosis or anemia. Stable electrolytes and kidney function. Urine with positive nitrate, 2+ leuk esterase. No significant WBC seen at this time. Sent for culture. No previous urine cultures to compare to here. CT scan of abdomen/pelvis was obtained and unremarkable. No evidence of pyelonephritis. No ureterolithiasis. No other abnormalities. Patient did report pain was slightly worse with deep breathing, but no shortness of breath. VS have been stable. No tachycardia or hypoxia. Lower portion of lungs clear on imaging. PERC negative, low suspicion for PE. Patient feeling improved with supportive therapy in the ED. Pain is more tolerable. Feel she is safe for discharge home at this time. Will discharge with short course of muscle relaxers and lidocaine patches for possibility of musculoskeletal component to pain. Advised to continue antibiotics, recommended follow-up with PCP for further evaluation. Given strict return precautions. She agrees with plan. Discharged in stable condition. Medical Records Attestation: I reviewed the patient's medical records. Lab Data Attestation: I reviewed the patient's lab results. 07/11/24 18:04 07/11/24 18:04 Labs: Lab Results 07/11/24 07/11/24 Range/Units 17:00 18:04 WBC 8.6 (4.5-10.0) K/mm3 RBC 4.30 (4.2-5.4) M/mm3 Hgb 12.8 (12.0-15.0) g/dL Hct 39.0 (37.0-47.0) % MCV 90.7 (80-100) fl MCH 29.8 (26-34) pg MCHC 32.8 (32-36) g/dl RDW 12.4 (11.5-14.5) % Plt Count 275 (150-375) k/mm3 MPV 10.4 (7.4-10.4) fl Immature Gran % (Auto) 0.2 (0-0.5) % Neut % (Auto) 61.2 (45.5-73.1) % Lymph % (Auto) 26.0 (18.3-44.2) % [place] % (Auto) 9.9 H (2.6-8.5) % Eos % (Auto) 2.4 (0-4.4) % Baso % (Auto) 0.3 (0.2-1.2) % Lymph # (Auto) 2.24 (0.9-3.2) K/mm3 [place] # (Auto) 0.9 H (0.1-0.6) K/mm3 Eos # (Auto) 0.2 (0-0.3) K/mm3 Baso # (Auto) 0.0 (0.0-0.1) K/mm3 Abs Immat Gran (auto) 0.02 (0.00-0.031) K/mm3 Absolute Neuts (auto) 5.3 (1.3-6.7) K/mm3 Absolute Nucleated RBC 0.000 (0.0-0.012) K/mm3 Nucleated RBC % 0.0 (0.0-0.2) % Sodium 139 (137-145) mmol/L Potassium 4.4 (3.4-5.0) mmol/L Chloride 101 (98-107) mmol/L Carbon Dioxide 32 H (22-30) mmol/L Anion Gap 6 (4-12) mmol/L BUN 17 (7-17) mg/dL Creatinine 0.74 (0.7-1.0) mg/dL Estim Creat Clear Calc 95 ml/min Estimated GFR > 60 (59 - ) Glucose 87 (65-110) mg/dL Calcium 8.9 (8.4-10.2) mg/dL Urine Color [place] H (Yellow) Urine Appearance Clear (Clear) Urine pH 5.5 (5.0-9.0) Ur Specific [place] 1.027 (1.001-1.035) Urine Protein 1+ H (Negative) mg/dL Urine Glucose (UA) Negative (Negative) mg/dL Urine Ketones Negative (Negative) mg/dL Ur Blood (Man) Negative (Negative) Urine Nitrate Positive H (Negative) Urine Bilirubin 2+ H (Negative) Urine Urobilinogen 1.0 (<2.0) mg/dL Add Ur Microanalysis Reviewed Leukocyte Esterase Rfl 2+ H (Negative) BILLY/UL Urine RBC 3-5 H (0-2) /hpf Urine WBC 0-5 (0-3) /hpf Ur Squamous Epith Cells Occasional (Few) /hpf Urine Bacteria None seen /hpf Urine Casts 0-2 Imaging Data Attestation: I personally reviewed and interpreted this imaging study as follows: Radiologist's impression: ITS Impressions Abdomen/Pelvis CT 07/11/24 17:54 IMPRESSION: No acute abdominopelvic process detected. Discharge Plan Discharge Clinical Impression: Right flank pain Urinary tract infection Qualifiers: Urinary tract infection type: acute cystitis Hematuria presence: with hematuria Qualified Code(s): N30.01 - Acute cystitis with hematuria Patient Disposition: Home Condition: Stable Instructions: Antibiotic Form, Flank Pain (ED), Back Pain (ED) Additional Instructions: Your work up here was reassuring. Continue antibiotics as prescribed for urinary tract infection. Continue Tylenol and ibuprofen as needed for pain. You may also try a heat or ice to back. Take muscle relaxers as needed and prescribed. Recommend taking these at night as they may cause sedation. Do not drive, operate heavy machinery, drink alcohol while on muscle relaxers as this may cause further sedation. Follow-up with your primary care doctor for further evaluation. Return to the ED if you experience worsening or severe pain, unable to keep down food or drink, difficulty urinating, significant blood in urine, persistent fevers, or any other symptoms of concern. Patient Language: Icelandic Prescriptions: New lidocaine 5 % adhesive patch,medicated 1 patch topical DAILY Qty: 15 0RF Rx Instructions: leave on most painful area for up to 12 hrs cyclobenzaprine 5 mg tablet 5 mg PO TID PRN (Reason: muscle spasm) Qty: 15 0RF No Action escitalopram oxalate 10 mg tablet 10 mg PO DIRECTED cephalexin 500 mg capsule 500 mg PO Q12H 7 Days Qty: 13 0RF phenazopyridine [Pyridium] 200 mg tablet 200 mg PO TID Qty: 5 0RF Follow-up/Referrals: Shelbi,Nata Hamilton APN [Primary Care Provider] - Time of Disposition: 18:36
[2024-07-11 18:09] LABS: Basophils Percent Auto 0.3 % (0.2-1.2); Eosinophils Absolute Auto 0.2 K/mm3 (0-0.3); Eosinophils Percent Auto 2.4 % (0-4.4); Hemoglobin 12.8 g/dL (12.0-15.0); Immature Granulocyte Absolute 0.02 K/mm3 (0.00-0.031); Immature Granulocyte Percent A 0.2 % (0-0.5); Lymphocytes Absolute Auto 2.24 K/mm3 (0.9-3.2); Mean Corpuscular HGB Conc 32.8 g/dl (32-36); Mean Corpuscular Hemoglobin 29.8 pg (26-34); Mean Corpuscular Volume 90.7 fl (80-100); Mean Platelet Volume 10.4 fl (7.4-10.4); Monocytes Absolute Auto 0.9 K/mm3 (0.1-0.6); Monocytes Percent Auto 9.9 % (2.6-8.5); Neutrophils Absolute Auto 5.3 K/mm3 (1.3-6.7); Neutrophils Percent Auto 61.2 % (45.5-73.1); Platelet Count Result 275 k/mm3 (150-375); Red Cell Distribution Width 12.4 % (11.5-14.5); White Blood Count 8.6 K/mm3 (4.5-10.0)
[2024-07-11 18:20] LABS: Anion Gap 6 mmol/L (4-12); Blood Urea Nitrogen 17 mg/dL (7-17); Calcium 8.9 mg/dL (8.4-10.2); Carbon Dioxide 32 mmol/L (22-30); Chloride 101 mmol/L (98-107); Estimated CRCL calculation 95 ml/min; Estimated Glomerular Filt Rate > 60; Glucose 87 mg/dL (65-110); Potassium 4.4 mmol/L (3.4-5.0); Sodium 139 mmol/L (137-145)
[2024-07-11 18:32] VITALS: BP 113/74; PULSE 77; RESP 16; O2SAT 99
[2024-07-11] MEDS: KETOROLAC 30 MG/ML VIAL (*BKC) IV PUSH (18:46)
[2024-07-12 11:57] LABS: BEDSIDEPREGUCG Negative (Negative)
== END 2024-07-11 19:03 | disposition home or self-care (01) ==
PROVIDERS: Emergency Medicine; Emergency Provider Physician Assistant; PCP Nurse Practitioner Family
DX: N30.01 Acute cystitis with hematuria (principal)
CPT/HCPCS: 36415; 74176; 80048; 81001; 81025; 85025; 87086; 96374; 99284; A9270; J1885